=== PATIENT | male | born 1980 | race Caucasian/White ===

== ENCOUNTER 2019-12-28 12:23 | Emergency (ER) | payer OTHER, SELFPAY ==
[2019-12-28 12:35] VITALS: BP 167/96; PULSE 112; RESP 20; TEMP 38.6; O2SAT 100
--- NOTE | 2019-12-28 12:47 | ED.URI ---
HPI - URI/Sore Throat General Chief Complaint: Upper Respiratory Infection Stated Complaint: cough/fever Source: patient Mode of arrival: ambulatory Limitations: no limitations History of Present Illness HPI Narrative: 39 year old male presents to urgent care with complaints of cough, runny nose, nasal congestion, bites, chills and fevers for the past 2 to 3 days. Patient reports that his daughter fever last week. Patient denies recent travel. Patient is a smoker. Patient has been taking [id number] ibuprofen and Zyrtec with minimal relief. Patient denies nausea, vomiting, diarrhea, shortness breath or wheezing. MD elicited complaint: fever, cough, sore throat, rhinorrhea and nasal congestion Onset (ago): day(s) (2) Consistency: constant Able to tolerate fluids by mouth: Yes Exacerbating factors: nothing Related Data Home Medications Medication Instructions Recorded Confirmed atorvastatin 40 mg PO DAILY 12/28/19 12/28/19 carbidopa-levodopa 1 tablet PO USEASDIRECTD 12/28/19 12/28/19 cetirizine 10 mg PO DAILY 12/28/19 12/28/19 gabapentin 600 mg PO TID 12/28/19 12/28/19 meloxicam 15 mg PO DAILY 12/28/19 12/28/19 omeprazole 20 mg PO DAILY 12/28/19 12/28/19 Allergies Allergy/AdvReac Type Severity Reaction Status Date / Time No Known Allergies Allergy Verified 12/28/19 12:45 Review of Systems Review of Systems: All systems reviewed & are unremarkable except as noted in HPI and below Constitutional: Constitutional: Reports chills, Denies fatigue, Reports fever(s) and Denies weakness ENT: Denies dysphagia, Denies vertigo, Denies dizziness, Denies epistaxis, Reports nasal congestion and Reports sore throat Cardiovascular: Cardiovascular: Denies chest pain, Denies rapid heart rate, Denies radiating jaw, neck or arm pain and Denies slow heart rate Respiratory: Respiratory: Denies chest congestion, Reports cough, Denies dyspnea and Denies wheezing Gastrointestinal: Gastrointestinal: Denies abdominal pain, Denies constipation, Denies diarrhea, Denies nausea and Denies vomiting Integumentary/Breasts: Skin/Breast: Denies rash Neurologic: Denies dizziness, Denies syncope and Denies headache(s) [facility] Family History Family History Other Diabetes mellitus Family history of allergic disorder Family history of gallbladder disease Hypertension Social History Social History (Updated 12/28/19 @ 12:50 by Valeria Jay APN) Smoking status: Current every day smoker Alcohol intake: current Exam Const: General: healthy appearing, no acute distress and alert Orientation/consciousness: patient oriented x3 Limitations: no limitations HENMT: Head: normal to inspection Ears: external ears normal and TM's normal bilaterally General nose exam: Normal nares present Face and sinus: sinuses nontender Mouth: Yes moist mucous membranes Throat: posterior oropharynx normal and uvula midline Neck: Neck: normal visual inspection and no lymphadenopathy Resp: Effort & Inspection: normal respiratory effort, not labored and not tachypneic Auscultation: clear to auscultation bilaterally Cardio: Rate: regular rate Rhythm: regular rhythm Heart sounds: no murmurs Skin: General skin exam: normal color, no jaundice and no pallor Rashes: no rashes Neuro: General: patient oriented x3, moves all extremities and no focal motor deficits Psych: Appearance: grossly normal and well kempt Mental Status: mental status grossly normal Affect: normal affect Attitude: cooperative Thought content: Yes Normal thought content present Course Vital Signs Vital signs: Vital Signs Temperature 38.6 C H 12/28/19 12:35 Pulse Rate 112 H 12/28/19 12:35 Respiratory Rate 12/28/19 12:35 Blood Pressure 167/96 H 12/28/19 12:35 Pulse Oximetry 100 12/28/19 12:35 Temperature 38.6 C H 12/28/19 12:35 Pulse Rate 112 H 12/28/19 12:35 Respiratory Rate 12/28/19 12:3
[2019-12-28] MEDS: IBUPROFEN 600 MG TABLET PO (12:54)
[2019-12-28 13:10] VITALS: BP 156/92; PULSE 117; RESP 20; TEMP 37.7; O2SAT 100
== END 2019-12-28 13:10 | disposition home or self-care (01) ==
PROVIDERS: Emergency Provider Nurse Practitioner Family
DX: J10.1 Influenza due to other identified influenza virus with other respiratory manifestations (principal); F17.200 Nicotine dependence, unspecified, uncomplicated
CPT/HCPCS: 87804; 99213; A9270; G0463

== ENCOUNTER → 2020-07-25 08:36 | Outpatient (CLI) | payer OTHER, SELFPAY ==
--- NOTE | ~2020-07-25 | CT_ITS ---
EXAMINATION: CT abdomen pelvis wo con DATE: 07/25/2020 08:53 INDICATION: Hematuria and low back pain TECHNIQUE: Computed tomography (CT) of the abdomen and pelvis was performed without intravenous contr ast. The dose-length product (DLP) was 935.74 mGy-cm. Automated exposure control and iterative recons truction technique were employed. COMPARISON: 09/19/2017 FINDINGS: Minimal dependent atelectasis is present in the lung bases. The heart size is normal. Porti ons of the liver dome are excluded from the examination. The liver is diffusely low in attenuation wh en compared with the spleen, consistent with hepatic steatosis. The mildly enlarged spleen measures 1 5.9 cm. The gallbladder is surgically absent. The pancreas and adrenal glands are normal. There is a 5 mm nonobstructing stone of the right kidney lower pole. A 2 mm nonobstructing stone is present in t he lower pole of the right kidney. There is no hydronephrosis or hydroureter. No stones are present i n the ureters or the bladder. The appendix is normal. No pathologically enlarged abdominal or pelvic lymph nodes are identified. There is no free intraperitoneal gas or evidence of bowel obstruction. Th ere is mild lumbar spondylosis. IMPRESSION: 1. Bilateral nonobstructing nephrolithiasis. No hydronephrosis or hydroureter. 2. Diffuse hepatic steatosis. 3. Mild splenomegaly of unclear etiology. Reviewed, dictated and finalized at location A.
== END ==
PROVIDERS: PCP Internal Medicine; Visit Provider Internal Medicine
DX: R31.9 Hematuria, unspecified (principal); K76.0 Fatty (change of) liver, not elsewhere classified; N20.0 Calculus of kidney; R16.1 Splenomegaly, not elsewhere classified
CPT/HCPCS: 74176

== ENCOUNTER 2021-10-17 07:25 | Observation (INO) | payer OTHER, SELFPAY ==
[2021-10-17] VITALS (11 sets, daily range): BP systolic 130–162; BP diastolic 76–112; PULSE 71–92; RESP 16–20; TEMP 36.1–36.7; O2SAT 95–100; BMI 32.9; BMI 32.1
--- NOTE | ~2021-10-17 | CT_ITS ---
EXAMINATION: CT brain wo con DATE: 10/17/2021 08:02 INDICATION: Dizziness. TECHNIQUE: Computed tomography (CT) of the head was performed without intravenous contrast. The mA wa s adjusted according to patient size. Iterative reconstruction technique was employed. The dose-lengt h product was 681.00 mGy-cm. COMPARISON: Brain MRI 06/22/2014, 06/03/2011 FINDINGS: There is no intracranial hemorrhage, acute infarction, or abnormal intracranial mass lesion . The ventricles are normal in size. The paranasal sinuses are clear. The orbits are normal. The righ t ocular globe is chronically enlarged with increased anteroposterior dimension. IMPRESSION: 1. Normal brain. Reviewed, dictated and finalized at location B. GENERAL MANAGER IMPRESSION: 1. Normal brain.
--- NOTE | ~2021-10-17 | NM_ITS ---
EXAMINATION: NM stress w perf spect multi DATE: 10/18/2021 13:22 INDICATION: Chest pain. TECHNIQUE: Rest images were obtained following intravenous administration of 8.7 mCi Tc99m tetrofosmi n (PBS-Bio). The patient performed an exercise activity. At peak exercise, 28.8 mCi Tc99m tetrofosmin (Myoview) was administered intravenously, and stress images were obtained. Data was reconstructed in to short axis and horizontal and vertical long axis SPECT images. Gated SPECT images were also obtain ed. COMPARISON: CT abdomen and pelvis 09/19/2017 FINDINGS: There is no definite reversible or fixed perfusion abnormality to suggest ischemia or infar ction. There is no segmental wall motion abnormality. Left ventricular ejection fraction measures 6 4%. IMPRESSION: 1. No definite ischemia or infarct. 2. Normal left ventricular ejection fraction measuring 64%. Reviewed, dictated and finalized at location B. TY SALES ADVISOR
--- NOTE | ~2021-10-17 | XR_ITS ---
EXAMINATION: XR chest 2V DATE: 10/17/2021 09:49 INDICATION: Shortness of breath, hypertension and dizziness TECHNIQUE: PA and lateral views of the chest were obtained. COMPARISON: None FINDINGS: The lungs are clear with no focal airspace opacities, pulmonary edema, pleural effusion or pneumothor ax. The cardiomediastinal silhouette is normal. Visualized bones and soft tissues are unremarkable. IMPRESSION: 1. No acute cardiopulmonary disease. Reviewed, dictated and finalized at location A. OR RUBY DEVELOPER
--- NOTE | 2021-10-17 07:41 | ECG_ITS ---
Measurements Intervals [place] Rate: 87 P: 46 IA: 141 QRS: 17 QRSD: 129 T: 38 QT: 372 QTc: 450 Interpretive Statements SINUS RHYTHM ST ELEVATION IN DIFFUSE LEADS- PROBABLY EARLY REPOLARIZATION ABNORMALITY BASELINE ARTIFACT- I, II, III, AVR, AVL, AVF, V1-V6 BORDERLINE ECG Electronically Signed On 10-17-2021 9:57:22 SILK SCREENER by Heriberto Contreras D.O.
--- NOTE | 2021-10-17 07:44 | ED.GENADULT ---
HPI - General Adult General Chief complaint: Recheck/Abnormal Lab/Rx Stated complaint: ELEVATED BP,DIZZY Time Seen by Provider: 10/17/21 07:37 Source: patient Mode of arrival: ambulatory Limitations: no limitations History of Present Illness HPI narrative: Patient is a 4-year-old male complaining of dizziness, blurred vision and elevated blood pressure that woke him up this morning around 3 AM. Patient also states that he was having chest and left arm discomfort, tightness, mild also started this morning. Patient denies any speech or visual disturbance, focal weakness or numbness, or unsteady gait. Patient denies any chest pain, shortness of breath, abdominal pain, nausea, vomiting, diaphoresis, fever or chills. Patient denies any history of hypertension. Related Data Home Medications Medication Instructions Recorded Confirmed atorvastatin 40 mg PO DAILY 12/28/19 08/08/20 carbidopa-levodopa 1 tablet PO USEASDIRECTD 12/28/19 08/08/20 cetirizine 10 mg PO DAILY 12/28/19 08/08/20 gabapentin 600 mg PO TID 12/28/19 08/08/20 meloxicam 15 mg PO DAILY 12/28/19 08/08/20 Allergies Allergy/AdvReac Type Severity Reaction Status Date / Time No Known Allergies Allergy Verified 08/08/20 08:49 Review of Systems Review of Systems: All systems reviewed & are unremarkable except as noted in HPI and below Constitutional: Constitutional: Denies body ache(s), Denies chills, Denies excessive sweating, Denies fatigue, Denies fever(s), Denies headache(s), Denies lethargy, Denies malaise, Denies weakness and Denies weight loss Eyes: Eyes: Denies blurry vision, Denies change in vision and Denies loss of vision ENT: Denies dizziness, Denies ear discharge, Denies headache(s), Denies lip swelling, Denies epistaxis, Denies nasal congestion, Denies neck pain, Denies throat swelling and Denies tongue swelling Cardiovascular: Cardiovascular: Denies chest pain, Denies chest pain at rest, Denies chest pain with activity, Denies diaphoresis, Denies rapid heart rate, Denies edema, Denies irregular heart rhythm, Denies lightheadedness, Denies palpitations, Denies dyspnea and Denies dyspnea on exertion Respiratory: Respiratory: Denies chest congestion, Denies cough, Denies hemoptysis, Denies dyspnea and Denies dyspnea on exertion Gastrointestinal: Gastrointestinal: Denies abdominal pain, Denies melena, Denies hematochezia, Denies diarrhea, Denies nausea, Denies vomiting and Denies hematemesis Musculoskeletal: Musculoskeletal: Denies abnormal gait, Denies deformity, Denies joint swelling, Denies limited range of motion, Denies neck pain and Denies numbness Neurologic: Denies Abnormal speech present, Denies abnormal gait, Denies confusion, Denies headache(s), Denies focal weakness, Denies loss of vision, Denies numbness, Denies Other visual disturbances, Denies Sensory deficit (Neuro) and Denies weakness Psychiatric: Psychiatric: Denies confusion, Denies depression, Denies auditory hallucinations, Denies homicidal ideation and Denies suicidal ideation Endocrine: Endocrine: Denies cold intolerance, Denies excessive sweating, Denies fatigue, Denies heat intolerance and Denies palpitations Hematologic/Lymphatic: Hematologic/Lymphatic: Denies easy bleeding and Denies easy bruising Allergic/Immunologic: Allergic/Immunologic: Denies lip swelling, Denies throat swelling and Denies tongue swelling PMFSH Past Medical History Medical History Depression GERD (gastroesophageal reflux disease) High cholesterol Kidney stone Sphincter of Oddi dysfunction Surgical History Surgical History H/O eye surgery as a child H/O knee surgery 10 yrs ago History of back surgery 6 yrs ago History of inguinal hernia Hx laparoscopic cholecystectomy 8 yrs ago Hx of tonsillectomy as a child Family History Family History (Reviewed 10/17/21 @ 07:48 by Sin Meraz
[2021-10-17 08:07] LABS: Basophils Absolute Auto 0.1 K/mm3 (0.0-0.1); Basophils Percent Auto 1.3 % (0.2-1.2); Eosinophils Absolute Auto 0.1 K/mm3 (0-0.3); Eosinophils Percent Auto 1.1 % (0-4.4); Hematocrit 46.5 % (42.0-52.0); Hemoglobin 15.9 g/dL (14.0-18.0); Immature Granulocyte Absolute 0.02 K/mm3 (0.00-0.031); Immature Granulocyte Percent A 0.3 % (0-0.5); Lymphocytes Absolute Auto 1.97 K/mm3 (0.9-3.2); Lymphocytes Percent Auto 28.1 % (18.3-44.2); Mean Corpuscular HGB Conc 34.2 g/dl (32-36); Mean Corpuscular Hemoglobin 29.8 pg (26-34); Mean Corpuscular Volume 87.1 fl (80-100); Mean Platelet Volume 9.9 fl (7.4-10.4); Monocytes Absolute Auto 0.4 K/mm3 (0.1-0.6); Monocytes Percent Auto 5.6 % (2.6-8.5); Neutrophils Absolute Auto 4.5 K/mm3 (1.3-6.7); Neutrophils Percent Auto 63.6 % (45.5-73.1); Platelet Count Result 223 k/mm3 (150-375); Red Blood Count 5.34 M/mm3 (4.6-6.20)
[2021-10-17] MEDS: LABETALOL HCL INJ 100 MG/20 ML VIAL 20 MG IV PUSH (08:09)
--- NOTE | 2021-10-17 08:12 | PC.NURSE ---
patient receives labetalol IV per ERP instruction. BP 162/92 prior to administration.
[2021-10-17 09:12] LABS: Anion Gap 11 mmol/L (8-16); Blood Urea Nitrogen 12 mg/dL (9-20); Calcium 9.3 mg/dL (8.4-10.2); Carbon Dioxide 24 mmol/L (22-30); Chloride 107 mmol/L (98-107); Estimated CRCL calculation 116 ml/min; Estimated Glomerular Filt Rate > 60; Glucose 102 mg/dL (65-110); Potassium 4.1 mmol/L (3.4-5.0); Sodium 142 mmol/L (137-145)
[2021-10-17 09:24] LABS: Troponin I < 0.012 ng/mL (0.000-0.034)
[2021-10-17] MEDS: ASPIRIN 81 MG CHEWABLE TABLET 324 MG PO (11:53)
[2021-10-17 12:36] LABS: Troponin I < 0.012 ng/mL (0.000-0.034)
--- NOTE | 2021-10-17 14:15 | PM.IMHP ---
H&P: HPI History of Present Illness Date/Time: 10/17/21 14:15 <Gloria Bowers PA-C - Last Filed: 10/18/21 00:25> Chief Complaint: Elevated blood pressure. <Gloria Bowers PA-C - Last Filed: 10/18/21 00:25> Narrative: This is a 40-year-old male smoker with history of Parkinson's disease and hyperlipidemia who presented to the emergency department earlier today for evaluation of elevated blood pressure. Early this morning while driving to work he developed a diffuse aching headache and blurry vision with reports of halos around lights. As time went on he developed an aching discomfort in his chest and left arm and feelings of lightheadedness. He continue to work for a few hours but was not feeling better and when he went home and checked his blood pressure he noted that it was 173/116 and he came into the ER for further evaluation. He was given IV labetalol and aspirin with improvement in his blood pressure and headache. He has no significant symptoms at the time my evaluation. He has never had similar symptoms in the past and to his knowledge she has never had elevated blood pressure readings. He denies exertional chest pain, shortness of breath, pleuritic pain, syncope, near syncope, orthopnea, paroxysmal nocturnal dyspnea, and lower extremity edema. Of note he has not taken medications for over 1 year. <Gloria Bowers PA-C - Last Filed: 10/18/21 00:25> Review of Systems Review of Systems: Twelve systems were reviewed. Patient has not taken medication for approximately 1 year. He was diagnosed with Parkinson's at age 28 and was on Sinemet for some time for his upper extremity tremors. He has not taken that for over a year and seems to do pretty well though his tremors will become more evident with stress. Occasionally he ambulates with a cane bed typically walks unassisted. No cold or flu symptoms no sick contacts. Except as documented, all other systems were reviewed and are negative. <Gloria Bowers PA-C - Last Filed: 10/18/21 00:25> [facility] Past Medical History Medical History: Medical History (Updated 10/18/21 @ 00:20 by Gloria Bowers PA-C) Arthritis of both knees Depression Gastroesophageal reflux disease Hyperlipidemia Kidney stone Parkinson's disease Sphincter of Oddi dysfunction Tobacco abuse <Gloria Bowers PA-C - Last Filed: 10/18/21 00:25> Surgical History Surgical History: Surgical History History of arthroscopy of right knee History of back surgery History of inguinal hernia (09/27/13) Indirect right inguinal hernia repair. History of laparoscopic cholecystectomy (04/12/11) History of right knee surgery (11/02/09) Karina osteotomy. History of strabismus surgery As an . History of tonsillectomy (1985) <Gloria Bowers PA-C - Last Filed: 10/18/21 00:25> Family History Family History: Family History Grandparent Diabetes mellitus Cancer Cerebrovascular accident Other Family history of allergic disorder Family history of gallbladder disease Hypertension <Gloria Bowers PA-C - Last Filed: 10/18/21 00:25> Social History Social History: Social History Social History: Surrogate decision maker: Brit Brady, spouse. Code status: Full code. Smoking packs per day: 0.5 Smoking cigarettes per day: 10.0 Years smoked: 22 Smoking pack-years: 11.00 Smoking status: Current every day smoker Tobacco type: cigarettes Alcohol intake: never Substance use: unknown Additional living arrangements comments: The patient lives with his in [place]. 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 <Gloria Bowers PA-C - Last Filed: 10/18/21 00:25> Meds Home Medications and Allergies Home medications: Ho
--- NOTE | 2021-10-17 14:44 | ADMGEN ---
This patient, Niraj Brady, was admitted to IMU Room 203-01. Patient/family oriented to hospital policies and general routines including ID bracelet, bed and alarms, visiting hours, pain management, procedures, bathroom and other care routines, personal items, smoking policy, room service/diet, and visiting hours. Information on how to activate the Rapid Response Team has been discussed. Patient/Family are encouraged to report perceived risks to care and to ask questions if they do not understand what they are told or what they should do.
--- NOTE | 2021-10-17 15:37 | PM.CNCAR ---
Assessment and Plan Assessment and plan (1) Hypertensive urgency: Code(s): I16.0 - Hypertensive urgency Status: Acute Assessment and Plan: Blood pressure markedly elevated. Will start him on carvedilol 6.25 mg p.o. b.i.d. as well as losartan 25 mg p.o. daily. Low-salt diet. And dietary and lifestyle modifications for weight loss (2) Chest pain: Qualifiers: Chest pain type: unspecified Qualified Code(s): R07.9 - Chest pain, unspecified Code(s): R07.9 - Chest pain, unspecified Status: Acute Assessment and Plan: Probably related to high blood pressure. Symptoms are improving with better blood pressure control. Will order a 2D echocardiogram with Doppler. Will rule out for myocardial infarction with serial cardiac enzymes. P.r.n. nitroglycerin will be provided. Medications including carvedilol and losartan as above. Keep him NPO after midnight if he continues to have intermittent symptoms overnight, will perform a stress test or obviously if his enzymes trend positive, will consider coronary angiogram. (3) Tobacco abuse: Code(s): Z72.0 - Tobacco use Status: Acute Assessment and Plan: Tobacco abuse counseling performed. (4) Parkinson's disease: Code(s): G20 - Parkinson's disease Status: Acute Assessment and Plan: Formally on carbidopa levodopa but has not taken any medications for a year (5) Headache: Code(s): R51.9 - Headache, unspecified Status: Acute Assessment and Plan: Likely secondary to marked hypertension. Currently improved with better blood pressure control. (6) Hyperlipidemia: Code(s): E78.5 - Hyperlipidemia, unspecified Status: Acute Assessment and Plan: Will start atorvastatin 40 mg p.o. daily. History of Present Illness History of Present Illness Consult date/time: 10/17/21 15:37 Requesting physician: Sin Hauser MD Consult reason: chest pain and hypertension Reason For Visit: Hypertensive Urgency, Chest Pain Narrative: Date of service 10/17/2021 Reason for consultation: Hypertensive urgency, chest pain, headache Requesting provider: Dr. Hauser History: Patient is a 40-year-old male has hyperlipidemia Parkinson's disease. He has not been on any medications for about a year. He has been in reasonable health recently without any specific complaints until this morning. He woke up and felt okay but later developed some blurry vision and felt a little achy as well as having headache. He also had a little bit of achiness in his chest which was dull. He had some tightness in his left arm. His took his blood pressure was 173/116. He also had some blurry vision and was seeing halos. Because of all the symptoms and because of the high blood pressure, he came to hospital for further workup evaluation. In the ER his blood pressure was 160/110s, he was given labetalol as well as aspirin and his headache and chest symptoms have improved. His vision has also improved. He still has a slight headache and gas pains. CT scan of the head was performed which did not show any acute abnormalities. Otherwise recently he denies any shortness of breath, syncope, presyncope, paroxysmal nocturnal dyspnea, orthopnea, edema palpitations. Review of Systems Review of Systems: All systems reviewed & are unremarkable except as noted in HPI and below Constitutional: Constitutional: Reports body ache(s) and Denies weakness Eyes: Eyes: Denies blurry vision ENT: Reports Normal hearing present Cardiovascular: Cardiovascular: Reports chest pain Respiratory: Respiratory: Denies dyspnea Gastrointestinal: Gastrointestinal: Denies abdominal pain Genitourinary: Genitourinary: Denies dysuria Musculoskeletal: Musculoskeletal: Denies neck pain Integumentary/Breasts: Skin/Breast: Denies dry skin Neurologic: Reports headache(s) Psychiatric: Psychiatric: Denies anxiety Endocrine: End
[2021-10-17] MEDS: carvediloL 6.25 MG TABLET PO ×2 (18:51→20:52)
[2021-10-17 19:01] LABS: Troponin I < 0.012 ng/mL (0.000-0.034)
[2021-10-18] VITALS (10 sets, daily range): BP systolic 122–144; BP diastolic 74–89; PULSE 68–93; RESP 12–20; TEMP 36.7–37; O2SAT 99
--- NOTE | 2021-10-18 | ECHO_ITS ---
Patient Info Name: Niraj Brady Age: 40 years : 1980 Gender: Male Ht: 74 in Wt: 256 lbs BSA: 2.49 m2 HR: 83 bpm BP: 122 / 74 mmHg Heart Rhythm: Sinus Rhythm Technical Quality: Fair Exam Date: 10/18/2021 7:42 AM Exam Location: [facility] Patient Status: Inpatient Admit Date: 10/17/2021 Staff Ordering Physician: Chandana Eng MD Marketing Planner: Leighann Moreno RDCS Attending Provider: Jayson Finch MD Referring Physician: Albertina TOTH; Exam Type: CA echo doppler color flow Study Info Indications - chest pain, hypertension Complete two-dimensional, color flow and Doppler transthoracic echocardiogram is performed. Summary 1. Complete two-dimensional, color flow and Doppler transthoracic echocardiogram is performed. 2. Left ventricular systolic function is normal, estimated at 55-60%. 3. The left ventricular diastolic function is indeterminate. 4. There is mild aortic valve sclerosis. 5. There is trace tricuspid valve regurgitation. 6. No pulmonary hypertension, estimated pulmonary arterial systolic pressure is 35 mmHg. Left Ventricle Left ventricular chamber dimension is normal. Left ventricular systolic function is normal, estimated at 55-60%. There is no increased left ventricular wall thickness. Left ventricular septal wall motion is normal. The left ventricular diastolic function is indeterminate. Right Ventricle Right ventricular chamber dimension is normal. Right ventricular systolic function is normal. Left Atria Left atrial chamber dimension is normal. Right Atria Right atrial chamber dimension is normal. Atrial Septum Intact interatrial septum visualized by color flow imaging. Aortic Valve The aortic valve is trileaflet. There is mild aortic valve sclerosis. There is no aortic valve stenosis. There is no aortic valve regurgitation. Pulmonic Valve The pulmonic valve is normal. There is no pulmonic valve stenosis. There is no pulmonic regurgitation. Mitral Valve The mitral valve has normal leaflets. There is no mitral valve stenosis. There is no mitral valve regurgitation. Tricuspid Valve The tricuspid valve leaflets are normal. There is no significant tricuspid valve stenosis. There is trace tricuspid valve regurgitation. No pulmonary hypertension, estimated pulmonary arterial systolic pressure is 35 mmHg. Pericardium/Pleural The pericardium appears normal. There is no pericardial effusion. Aorta The aortic root size at the sinus of Valsalva is normal. The prox ascending aorta size is normal. Left Ventricular Outflow Tract Name Value Normal LVOT 2D LVOT Diameter 2.1 cm LVOT Doppler LVOT Peak Gradient 3 mmHg LVOT Mean Gradient 2 mmHg LVOT VTI 16 cm LVOT VTI/AV VTI Ratio 0.6 LVOT Stroke Volume 57 ml LVOT CO 4.5 l/min LVOT CI 1.8 l/min/m2 Pulmonic Valve
--- NOTE | 2021-10-18 | EST_ITS ---
Patient Info Name: Niraj Brady Age: 40 years : 1980 Gender: Male Ht: 74 in Wt: 249 lbs BSA: 2.46 m2 Exam Date: 10/18/2021 12:15 PM Exam Location: [facility] Stress Patient Status: Inpatient Admit Date: 10/17/2021 Staff Ordering Physician: Liza Vergara Attending Provider: Jayson Finch MD Exercise Technologist: Elizabeth Champagne RDCS Exercise Physician: Jimmy Dockery MD Exam Type: CA stress test treadmill w NM Study Info Indications R07.9 - Chest pain, unspecified A nuclear stress test was performed. Summary 1. Negative exercise EKG stress test for ischemia at 83% of the maximum predicted heart rate. 2. Follow-up on nuclear images. Protocol: Tang Stress ECG Details Stage: REST Duration (min): 0 min : 49 sec Speed (mph): 0.0 Grade (%): 0 HR (bpm): 82 SBP (mmHg): 147 DBP (mmHg): 90 METS: --- Stage: REST Duration (min): 6 min : 55 sec Speed (mph): 0.0 Grade (%): 0 HR (bpm): 89 SBP (mmHg): 147 DBP (mmHg): 90 METS: --- Stage: STAGE 1 Duration (min): 1 min : 0 sec Speed (mph): 1.7 Grade (%): 10 HR (bpm): 98 SBP (mmHg): 147 DBP (mmHg): 90 METS: --- Stage: STAGE 1 Duration (min): 2 min : 0 sec Speed (mph): 1.7 Grade (%): 10 HR (bpm): 100 SBP (mmHg): 147 DBP (mmHg): 90 METS: --- Stage: STAGE 1 Duration (min): 3 min : 0 sec Speed (mph): 1.7 Grade (%): 10 HR (bpm): 102 SBP (mmHg): 158 DBP (mmHg): 60 METS: --- Stage: STAGE 2 Duration (min): 1 min : 0 sec Speed (mph): 2.5 Grade (%): 12 HR (bpm): 108 SBP (mmHg): 158 DBP (mmHg): 60 METS: --- Stage: STAGE 2 Duration (min): 2 min : 0 sec Speed (mph): 2.5 Grade (%): 12 HR (bpm): 112 SBP (mmHg): 188 DBP (mmHg): 65 METS: --- Stage: STAGE 2 Duration (min): 3 min : 0 sec Speed (mph): 2.5 Grade (%): 12 HR (bpm): 114 SBP (mmHg): 188 DBP (mmHg): 65 METS: --- Stage: STAGE 3 Duration (min): 1 min : 0 sec Speed (mph): 3.4 Grade (%): 14 HR (bpm): 124 SBP (mmHg): 178 DBP (mmHg): 84 METS: --- Stage: STAGE 3 Duration (min): 2 min : 0 sec Speed (mph): 3.4 Grade (%): 14 HR (bpm): 125 SBP (mmHg): 178 DBP (mmHg): 84 METS: --- Stage: STAGE 3 Duration (min): 3 min : 0 sec Speed (mph): 3.4 Grade (%): 14 HR (bpm): 128 SBP (mmHg): 172 DBP (mmHg): 80 METS: --- Stage: STAGE 4 Duration (min): 1 min : 0 sec Speed (mph): 4.2 Grade (%): 16 HR (bpm): 139 SBP (mmHg): 172 DBP (mmHg): 80 METS: --- Stage: STAGE 4 Duration (min): 2 min : 0 sec Speed (mph): 4.2 Grade (%): 16 HR (bpm): 145 SBP (mmHg): 193 DBP (mmHg): 77 METS: --- Stage: STAGE 4 Duration (min): 2 min : 34 sec Speed (
[2021-10-18 05:22] LABS: Hematocrit 44.4 % (42.0-52.0); Hemoglobin 14.7 g/dL (14.0-18.0); Mean Corpuscular HGB Conc 33.1 g/dl (32-36); Mean Corpuscular Hemoglobin 28.7 pg (26-34); Mean Corpuscular Volume 86.5 fl (80-100); Mean Platelet Volume 10.1 fl (7.4-10.4); Platelet Count Result 218 k/mm3 (150-375); Red Blood Count 5.13 M/mm3 (4.6-6.20); Red Cell Distribution Width 13.9 % (11.5-14.5); White Blood Count 7.9 K/mm3 (4.5-10.0)
[2021-10-18 05:35] LABS: Magnesium 2.2 mg/dL (1.6-2.3)
--- NOTE | 2021-10-18 08:04 | PM.PNCARD ---
Progress Note: A&P Assessment and Plan (1) Hypertensive urgency: Code(s): I16.0 - Hypertensive urgency Status: Acute Assessment and Plan: Blood pressure markedly elevated on admission. Started on coreg 6.25mg p.o. b.i.d and losartan 25mg p.o. daily. Blood pressures have improved. Low salt diet. Dietary/lifestyle modifications for weight loss. (2) Chest pain: Qualifiers: Chest pain type: unspecified Qualified Code(s): R07.9 - Chest pain, unspecified Code(s): R07.9 - Chest pain, unspecified Status: Acute Assessment and Plan: Probably related to high blood pressure. Symptoms are improving with better blood pressure control. However, he did still have some chest tightness overnight. Will proceed with stress test today. Serial troponins were negative. Echo pending. (3) Tobacco abuse: Code(s): Z72.0 - Tobacco use Status: Acute Assessment and Plan: Tobacco abuse counseling performed. (4) Parkinson's disease: Code(s): G20 - Parkinson's disease Status: Acute Assessment and Plan: Formally on carbidopa levodopa but has not taken any medications for a year (5) Headache: Code(s): R51.9 - Headache, unspecified Status: Acute Assessment and Plan: Likely secondary to marked hypertension. Currently improved with better blood pressure control. (6) Hyperlipidemia: Code(s): E78.5 - Hyperlipidemia, unspecified Status: Acute Assessment and Plan: Started on a statin Subjective Date/time seen: 10/18/21 08:04 Review of Systems Review of Systems: All systems reviewed & are unremarkable except as noted in HPI and below Constitutional: Constitutional: Reports body ache(s), Denies fatigue, Reports headache(s) and Denies weakness Eyes: Eyes: Denies blurry vision ENT: Reports Normal hearing present, Reports headache(s) and Denies neck pain Cardiovascular: Cardiovascular: Reports chest pain and Denies dyspnea Respiratory: Respiratory: Denies dyspnea Gastrointestinal: Gastrointestinal: Denies abdominal pain Genitourinary: Genitourinary: Denies dysuria Musculoskeletal: Musculoskeletal: Denies neck pain Integumentary/Breasts: Skin/Breast: Denies dry skin Neurologic: Reports Normal hearing present, Reports headache(s) and Denies weakness Psychiatric: Psychiatric: Denies anxiety Endocrine: Endocrine: Denies fatigue Hematologic/Lymphatic: Hematologic/Lymphatic: Denies easy bleeding Allergic/Immunologic: Allergic/Immunologic: Denies GI upset with certain foods Exam Narrative: Patient awake, alert, and oriented Const: General: comfortable and no acute distress HENMT: General nose exam: Normal nares present Eyes: Sclera: sclerae normal Neck: Neck: supple and no JVD Resp: Auscultation: clear to auscultation bilaterally Cardio: Rate: regular rate Rhythm: regular rhythm Heart sounds: no murmurs GI: Inspection: non-distended Auscultation: normal bowel sounds Skin: General skin exam: normal color Neuro: Cranial nerves: Yes Normal hearing present Cognition (Neuro): normal cognition Speech: normal speech Extrem: General: normal to inspection and no edema Psych: Mental Status: mental status grossly normal Objective Data Vital Signs Vital Signs: Vital Signs - 24 hr 10/17/21 12:47 10/17/21 13:45 10/17/21 15:31 Temperature 36.7 C Pulse Rate 83 88 92 Respiratory Rate 18 18 Blood Pressure 139/92 H 149/92 H Pulse Oximetry 99 99 10/17/21 16:00 10/17/21 18:00 10/17/21 18:51 Temperature 36.6 C Pulse Rate 88 89 87 Respiratory Rate 16 Blood Pressure 147/76 H Pulse Oximetry 97 10/17/21 19:43 10/17/21 20:00 10/17/21 22:00 Temperature 36.6 C Pulse Rate 76 75 71 Respiratory Rate 20 Blood Pressure 130/81 Pulse Oximetry 95 10/17/21 23:43 10/18/21 00:00 10/18/21 02:00 Temperature 36.7 C Pulse Rate 88 68 72 Respiratory Rate 20 Blood
[2021-10-18] MEDS: ATORVASTATIN 40 MG TABLET PO (09:00)
[2021-10-18] MEDS: GABAPENTIN 300 MG CAPSULE 600 MG PO ×2 (09:00→15:13)
[2021-10-18] MEDS: ASPIRIN 81 MG ENTERIC TABLET PO (09:01)
[2021-10-18] MEDS: CARBIDOPA/LEVODOPA 25/250 MG TABLET 1 TABLET PO ×2 (09:03→15:13)
[2021-10-18] MEDS: LOSARTAN POTASSIUM 25 MG TABLET PO (09:20)
--- NOTE | 2021-10-18 14:01 | PM.DS ---
DS: Admitting Diagnosis Discharge Date 10/18/21 Admitting Diagnosis Chest pain, blurry vision and headache DS: Discharge Diagnosis Discharge Diagnosis (1) Chest pain: Qualifiers: Chest pain type: unspecified Qualified Code(s): R07.9 - Chest pain, unspecified Code(s): R07.9 - Chest pain, unspecified Status: Acute Assessment and Plan: CP felt related to high blood pressure as his symptoms improved with blood pressure control. EKG showing ST elevation diffusely felt to be repolarization. Troponin negative x3. Echo showing EF 55-60% o/w normal. Cardiology was consulted. Lexiscan stress test was negative. (2) Hypertensive urgency: Code(s): I16.0 - Hypertensive urgency Status: Acute Assessment and Plan: Blood pressures improved with IV labetalol given in the emergency department. He has been started on carvedilol 6.25 mg twice daily as well as losartan 25 mg daily. BP remained stable since. (3) Tobacco abuse: Code(s): Z72.0 - Tobacco use Status: Acute Assessment and Plan: Smoking cessation was strongly encouraged. (4) Hyperlipidemia: Code(s): E78.5 - Hyperlipidemia, unspecified Status: Acute Assessment and Plan: He is noncompliant with this medication as well. Encouraged compliance with all of his medications. We continued atorvastatin. (5) Parkinson's disease: Code(s): G20 - Parkinson's disease Status: Acute Assessment and Plan: Previously on carbidopa-levodopa though he has not taken medication for a year. Encouraged follow-up with primary care provider. DS: Summary Hospital Course Reason for hospitalization: 40yo male here for chest pain. Please see H&P for details. Hospital Course: Please see above for details of hospital course. Status at Discharge Cognitive/behavioral status at discharge: Stable Time Spent with Patient Time attestation: Total time spent providing and/or coordinating discharge services: 35 minutes Time spent: Greater than 30 minutes Specific discharge activities: discussion about leading a healthy lifestyle. Exam Narrative: AF 98.6 144/89 78 12 99% ra Gen - NARD Chest - CTA bilaterally, nml RR CV - RRR S1/S2 Abd - Soft, NT/ND, Positive BS Ext - No pedal edema Neuro - Alert and oriented. Nonfocal exam. Psych - Nml mood and affect Skin - Warm and dry DS: Data Data Completed and Pending Labs on day of discharge: Labs from last 24 hours 10/18/21 10/18/21 10/17/21 04:30 04:30 18:11 WBC 7.9 RBC 5.13 Hgb 14.7 Hct 44.4 MCV 86.5 MCH 28.7 MCHC 33.1 RDW 13.9 Plt Count 218 MPV 10.1 Magnesium 2.2 Troponin I < 0.012 Discharge Plan Discharge Attending physician on discharge: Jayson Finch Consulting providers: Chandana Eng Discharging Clinician: Jayosn Finch Anticipated Discharge Date/Time: 10/18/21 14:27 Patient Disposition: Home, Self-Care Activity: as tolerated Diet: heart healthy and low sodium Discharge Instructions: Please avoid large gathering, wear face coverings in public and practice social distance. Check blood pressure 1 to 2 times a day. Record and bring into your doctor for review. Call your doctor if your blood pressure is greater than 180/110. Contact your doctor or call 911 and come to the Emergency Room if you have recurrent chest pain or other worrisome symptoms. Avoid NSAIDs (ibuprofen, naproxen, Aleve). Tylenol is safe to take. Follow-up with your doctor in 1-2 weeks. Please call for appointment. Patient Instructions: Antibiotic Form, How to Stop Smoking (DC) Stand Alone Forms: General Discharge Information Follow-up/Referrals: Noni,Reza Anguiano MD [Primary Care Provider] - Call for Appointment Discharge Medications: New carvedilol [Coreg] 6.25 mg Tablet 6.25 mg PO Q12HR Qty: 60 RF: 1 losartan 25 mg
[2021-10-18] MEDS: carvediloL 6.25 MG TABLET PO (15:13)
== END 2021-10-18 16:49 | disposition home or self-care (01) ==
LOC: ANHED 12:05 → ANHIMU 13:04
PROVIDERS: Physician Assistant; Admitting Provider Internal Medicine; Emergency Provider Emergency Medicine; PCP Internal Medicine; Visit Provider Internal Medicine
DX: R07.9 Chest pain, unspecified (principal); I16.0 Hypertensive urgency; R51.9 Headache, unspecified; R42 Dizziness and giddiness; F17.210 Nicotine dependence, cigarettes, uncomplicated; G20 Parkinson's disease; E78.5 Hyperlipidemia, unspecified; K21.9 Gastro-esophageal reflux disease without esophagitis; F32.9 Major depressive disorder, single episode, unspecified
CPT/HCPCS: 36415; 70450; 71046; 78452; 80048; 83735; 84484; 85025; 85027; 93005; 93017; 93306; 96374; 99285; A9270; A9502; G0378

== ENCOUNTER 2024-09-14 08:51 | Outpatient (CLI) | payer BC, OTHER, SELFPAY ==
--- NOTE | ~2024-09-14 | XR_ITS ---
XR hip BI 2V w AP pelvis Ordering provider: Jaren Gaston MD History: . M25.559 - Pain in unspecified hip . Comparison: None. FINDINGS: BONES: No acute fracture or dislocation. HIP JOINT SPACES: Mild to moderate osteoarthritis changes bilaterally. SACROILIAC JOINT SPACES/LUMBAR SPINE: The sacroiliac joint spaces are narrowed bilaterally. Mild dege nerative changes of the visualized lower lumbar spine. PUBIC SYMPHYSIS: Normal. SOFT TISSUES: Normal. IMPRESSION: No acute osseous abnormality of the bilateral hips and pelvis. Bilateral hip osteoarthritic changes of moderate degree. Narrowing of the sacroiliac joints which may indicate sacroiliitis. Reviewed, dictated and finalized at location A. ICAL CARE UNIT MANAGER
--- NOTE | ~2024-09-14 | XR_ITS ---
3 VIEWS LUMBAR SPINE Ordering provider: Jaren Gaston MD History: . M96.1 - Postlaminectomy syndrome, not elsewhere classified . Comparison: None. FINDINGS: VERTEBRAL BODIES:Minimal spondylolisthesis at the level of L4-L5. No visible fracture or subluxation . Degenerative changes of the spine. DISK SPACES: Moderate narrowing of the disc L1-L2, L3-L4 and L4-L5. Facet joint disease at the level of L4-L5 and L5-S1. SOFT TISSUES: Normal. IMPRESSION: No acute osseous abnormality lumbar spine. Spondylolisthesis at the level of L4-L5. Multilevel degenerative disc disease. Reviewed, dictated and finalized at location A. AL SERVICES SPECIALIST
== END 2024-09-14 08:52 | disposition home or self-care (01) ==
PROVIDERS: PCP Nurse Practitioner Family; Visit Provider Anesthesiology Pain Medicine
DX: M96.1 Postlaminectomy syndrome, not elsewhere classified (principal); M43.16 Spondylolisthesis, lumbar region; M47.817 Spondylosis without myelopathy or radiculopathy, lumbosacral region; M51.369 Other intervertebral disc degeneration, lumbar region without mention of lumbar back pain or lower extremity pain; M16.0 Bilateral primary osteoarthritis of hip
CPT/HCPCS: 72114; 73521

== ENCOUNTER 2025-03-10 10:45 | Outpatient (CLI) | payer BC, OTHER, SELFPAY ==
--- NOTE | ~2025-03-10 | MR_ITS ---
MRI of the lumbar spine Clinical History: Modic changes Technique: Axial T2-weighted images, and sagittal T1-weighted, T2-weighted, and T2 fat-sat images wer e acquired. Findings: There is no fracture of the lumbar spine. There is minimal grade 1 anterolisthesis of L4 ov er L5. No bone marrow signal reality seen. No lytic changes are identified. At L1-L2, there is moderate degenerative disc narrowing. No spinal canal stenosis or neural foraminal narrowing. At L2-L3, there is minimal disc bulge and mild facet arthropathy. No central canal stenosis or neural foraminal narrowing. At L3-L4, there is mild degenerative disc narrowing. There is minimal disc bulge and mild facet arthr opathy. No central canal stenosis. There is mild bilateral neural foraminal narrowing. At L4-L5, there is disc bulge/uncovering with severe facet arthropathy. There is moderate central can al stenosis. Neural foramina are preserved. At L5-S1, there is mild disc bulge and moderate facet arthropathy. No central canal stenosis. There i s moderate left neural foraminal narrowing, and mild right neural foraminal narrowing. Paravertebral soft tissues are unremarkable. Impression: Bone marrow signals are unremarkable. No motor changes are evident. Mild degenerative change overall, as above. Reviewed, dictated and finalized at [facility]. Impression: Bone marrow signals are unremarkable. No motor changes are evident. Mild degenerative change overall, as above.
== END 2025-03-10 10:46 | disposition home or self-care (01) ==
LOC: MICIMG 10:46
PROVIDERS: PCP Nurse Practitioner Family; Visit Provider Anesthesiology Pain Medicine
DX: M47.816 Spondylosis without myelopathy or radiculopathy, lumbar region (principal)
CPT/HCPCS: 72148

== ENCOUNTER 2025-03-25 07:32 | Emergency (ER) | payer BC, OTHER, SELFPAY ==
--- NOTE | ~2025-03-25 | XR_ITS ---
EXAMINATION: XR chest 2V 03/25/2025 08:50 INDICATION: Shortness of breath PROCEDURE: 2 view chest COMPARISON: No prior studies for comparison. FINDINGS: The lungs are clear. The cardiomediastinal silhouette is within normal limits. There are no pleural effusions. There is no pneumothorax suspected. IMPRESSION: 1: NO ACUTE CARDIOPULMONARY DISEASE. Reviewed, dictated and finalized at location A.
--- OUTSIDE RECORDS SUMMARY | 2025-03-25 07:35 | XMS_ITS | Clinical Summary ---
Author Organization [facility] Address [address] [place] [address] Care Team Providers Care Tip Out Worker Name Role Phone Timmy Betancourt MD Primary Care Provider [phone] Source Comments [facility],non-owned Affiliates and Associated Physician Practices is amultiple site organization consisting of ambulatory clinics and hospital sitesin [place], [place], [place] and [place]. This disclosure is being madepursuant to the Care Everywhere program and may not contain all information available regarding this patient. Last updated 18.[facility] Allergies Active Allergy Reactions Criticality Noted Date Comments Morphine 12/01/2016 Vomiting Medications * Be aware that medications may not be up to date on this document. Alwaysverify current medications with the patient. carbidopa-levodo pa (SINEMET) 25-250 MG tablet Take 1 Tab by mouth 3 times daily. Active gabapentin PHN (GRALISE) 600 MG tablet Take 600 mg by mouth daily with dinner. 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 MAINTENANCE TECHNICIAN Respiratory Rate 16 12/01/2016 7:20 PM TIRE MAINTENANCE TECHNICIAN Oxygen Saturation 99% 12/01/2016 7:20 PM TIRE MAINTENANCE TECHNICIAN Inhaled Oxygen Concentration - - Weight 115.7 kg (255 lb) 12/01/2016 3:41 PM 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 MAINTENANCE TECHNICIAN Height 186.7 cm (6' 1.5) 12/01/2016 3:41 PM TIRE MAINTENANCE TECHNICIAN Body Mass Index 33.19 12/01/2016 3:41 PM TIRE MAINTENANCE TECHNICIAN Plan of Treatment Health Maintenance Due Date Last Done Comments LIPID TESTING 1980 HIV SCREENING 1995 HEPATITIS C SCREENING 11/15/1998 DTAP/TDAP/TD VACCINES (1 - Tdap) 1999 HEPATITIS B VACCINE (1 of 3 - 19+ 3-dose series) 1999 COVID-19 VACCINE ( - 2023-2 5 season) 2024 DEPRESSION SCREENING 10/20/2024 INFLUENZA VACCINE (Season Ended) 2025 ZOSTER VACCINE (1 of 2) 2030 HIB VACCINE Aged Out No longer eligi ble based on patient's age to complete this topic HPV VACCINE Aged Out No longer eligi ble based on patient's age to complete this topic MENINGOCOCCAL (Group B) VACC INE SHARED DECISION-MAKING Aged Out No longer eligibl e based on patient's age to complete this topic MENINGOCOCCAL GROUPS A/C/Y/W VACCINE Aged Out No longer eligible b ased on patient's age to complete this topic PNEUMOCOCCAL VACCINE Aged Out No long er eligible based on patient's age to complete this topic [facility] [place] [address] PAY[employer] [place] [place] [id number] [facility] Care Teams Tip Out Worker Relationship Specialty Start Date End Date Timmy Betancourt MD PCP - General Family Medicine 12/01/16
--- OUTSIDE RECORDS SUMMARY | 2025-03-25 07:35 | XMS_ITS | Patient Health Record ---
Author Organization [facility] Address [address] [place] [address] Care Team Providers Care Ground Service Equipment Mechanic Name Role Phone Reza Cheney MD Primary Care Provider Unavailab angely KASPER, PAElC, CELESTINO Unavailable [phone] Robbie Irvin MD Unavailable Reason For Referral No Information Medications Medication SIG (Take, Route, Frequency, Duration) Notes Start Date End Date Status Atorvastatin Calcium 40 MG 1 tablet Oral ly Once a day Active Sertraline HCl 100 MG 1 tablet Orally On ce a day Active Tylenol PRN Active Meloxicam 15 MG 1 tablet Orally Once a day Active Melatonin 10 MG as directed Orally Active Benadryl PRN Active Carbidopa-Levodopa 25-250 MG 1 tablet Orally 5 times a day Active Dicyclomine HCl 20 MG 1 tablet Orally up to 3-4 times a day before meals and at bedtime for 30 day(s) 08/11/2020 Active Gabapentin 600 MG 1 tablet Orally TID Active Social History Tobacco Use: Social History Observation Description Date Details (start date - stop date) Current Smoker NA - NA Tobacco Use/Smoking Question Answer Notes Are you a current smoker How often do you smoke cigarettes? every day How many cigarettes a day do you smoke? 6-10 Plan Of Treatment Pending Test Test Name Order Date Colonoscopy 08/28/2020 Lipase, Serum 08/11/2020 Celiac Disease Panel 08/11/2020 Comp. Metabolic Panel (14) 08/11/2020 CBC 08/11/2020 Esophagogastroduodenoscopy (EGD) 020 Insurance Providers Payer Name Payer Address Payer Phone Subscriber Number Group Number Insured Name Patient Relationship to Insured Coverage Start Date Coverage End Date [facility] [address] [place], [place] [id number] Niraj Brady Self - patient is the insured Medical (General) History Medical History History ICD Code Depression, GERD, hyperchole sterolemia, kidney stones, biliary dyskinesia, obesity, early Parkinson's disease Surgical History Surgery Date(Month/Year) Eye surgery, knee surgery, b ack surgery, inguinal hernia repair, lap cholecystectomy, tonsillectomy
[2025-03-25 07:38] VITALS: BP 196/125; PULSE 78; RESP 14; TEMP 36.4; O2SAT 98
--- NOTE | 2025-03-25 07:47 | ECG_ITS ---
Test Date: 2025-03-25 08:07:37 Measurements Intervals [place] Rate: 82 P: 26 AL: 183 QRS: -28 QRSD: 128 T: -2 QT: 372 QTc: 435 Interpretive Statements SINUS RHYTHM INCOMPLETE RIGHT BUNDLE BRANCH BLOCK DELAYED PRECORDIAL R/S TRANSITION INFERIOR INFARCT, AGE INDETERMINATE BASELINE ARTIFACT- I, II, III, AVR, AVL, AVF ABNORMAL ECG No previous ECG available for comparison Electronically Signed On 03-25-2025 08:36:38 CDT by Heriberto Contreras D.O.
[2025-03-25 08:05] LABS: Basophils Absolute Auto 0.1 K/mm3 (0.0-0.1); Basophils Percent Auto 1.2 % (0.2-1.2); Eosinophils Absolute Auto 0.1 K/mm3 (0-0.3); Eosinophils Percent Auto 1.6 % (0-4.4); Hemoglobin 15.6 g/dL (14.0-18.0); Immature Granulocyte Absolute 0.06 K/mm3 (0.00-0.031); Immature Granulocyte Percent A 0.7 % (0-0.5); Lymphocytes Percent Auto 31.4 % (18.3-44.2); Mean Corpuscular HGB Conc 33.2 g/dl (32-36); Mean Corpuscular Hemoglobin 28.5 pg (26-34); Mean Corpuscular Volume 85.9 fl (80-100); Mean Platelet Volume 9.1 fl (7.4-10.4); Monocytes Absolute Auto 0.5 K/mm3 (0.1-0.6); Monocytes Percent Auto 6.1 % (2.6-8.5); Neutrophils Absolute Auto 5.3 K/mm3 (1.3-6.7); Platelet Count Result 251 k/mm3 (150-375); Red Blood Count 5.47 M/mm3 (4.6-6.20); Red Cell Distribution Width 13.6 % (11.5-14.5); White Blood Count 8.9 K/mm3 (4.5-10.0)
[2025-03-25 08:07] VITALS: BP 186/135; PULSE 84; RESP 13; TEMP 36.6; O2SAT 99
[2025-03-25 08:15] LABS: Alanine Aminotransferase 46 U/L (6-50); Albumin Level 4.6 g/dL (3.5-5.1); Alkaline Phosphatase 76 U/L (38-126); Anion Gap 9 mmol/L (4-12); Aspartate Amino Transferase 42 U/L (17-59); Bilirubin,Total 0.7 mg/dL (0.2-1.3); Blood Urea Nitrogen 15 mg/dL (9-20); Calcium 9.5 mg/dL (8.4-10.2); Carbon Dioxide 24 mmol/L (22-30); Chloride 109 mmol/L (98-107); Estimated CRCL calculation 109 ml/min; Estimated Glomerular Filt Rate > 60; Glucose 103 mg/dL (65-110); Potassium 4.5 mmol/L (3.4-5.0); Sodium 142 mmol/L (137-145); Total Protein 7.6 g/dL (6.3-8.2)
--- NOTE | 2025-03-25 08:20 | ED.GENADULT ---
HPI - General Adult General Chief complaint: Recheck/Abnormal Lab/Rx Stated complaint: HTN Time Seen by Provider: 03/25/25 07:45 History of Present Illness HPI narrative: Patient is a 44-year-old male with history of hypertension who presents ER with elevated blood pressure. Systolic blood pressures been running in the 190s. No chest pain. Mild shortness of breath but reports that is related to a cold he has had for last 2 weeks. He has had sinus congestion mild throbbing headache. No change in vision or hearing. No extremity weakness. Has not been taking any decongestants, only Zyrtec. Takes his metoprolol for his blood pressure. Related Data Allergies Allergy/AdvReac Type Severity Reaction Status Date / Time morphine AdvReac Mild Nausea Verified 03/25/25 07:45 Review of Systems Review of Systems: All systems reviewed & are unremarkable except as noted in HPI and below Constitutional: Constitutional: Reports no additional constitutional complaints Cardiovascular: Cardiovascular: Reports no additional cardiovascular complaints Respiratory: Respiratory: Reports no additional respiratory complaints Gastrointestinal: Gastrointestinal: Reports no additional gastrointestinal complaints [facility] Past Medical History Medical History Hyperlipidemia Arthritis of both knees Parkinson's disease Gastroesophageal reflux disease Sphincter of Oddi dysfunction Kidney stone Depression Surgical History Surgical History History of back surgery History of strabismus surgery As an . History of arthroscopy of right knee History of right knee surgery (11/02/09) Karina osteotomy. History of laparoscopic cholecystectomy (04/12/11) History of tonsillectomy (1985) History of inguinal hernia (09/27/13) Indirect right inguinal hernia repair. Family History Family History Grandparent Diabetes mellitus Cancer Cerebrovascular accident Other Family history of allergic disorder Family history of gallbladder disease Hypertension Social History Social History Social History: Surrogate decision maker: Brit Mackrachel, spouse. Code status: Full code. 02/03/25 very confident with medical forms Smoking packs per day: 0.5 Smoking cigarettes per day: 10.0 Years smoked: 22 Smoking pack-years: 11.00 Smoking status: Current every day smoker Tobacco type: cigarettes Alcohol intake: never Substance use: unknown Substance use type: does not use Do You Feel Safe in your Home?: Yes Lack of Transportation: No Lack of Food: Never True Current Housing: I Have Housing Concerned About Future Housing: No Difficulty Paying Gas/Electric Bills: No Difficulty Paying for Meds: No Currently Unemployed: No Education: Trade/Vocational Certificate Difficulty w/ Childcare or Family Care: No Living arrangements: with family Additional living arrangements comments: The patient lives with his in [place]. 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 Gender identity (if verbalized by the patient): Male Exam Narrative: GENERAL: Well-appearing, well-nourished, and in no acute distress. HEAD: Normocephalic, atraumatic. ENT: Mucous membranes moist. CHEST: Clear to auscultation. No respiratory distress. HEART: Regular rate and rhythm. Normal peripheral pulses. ABDOMEN: Soft, nontender, nondistended. EXTREMITIES: Normal range of motion. No edema. SKIN: Warm, dry, no rash. NEURO: Alert and oriented x3. PSYCH: Normal mood and affect. Course Course Emergency Course: Patient resting comfortably. Blood pressure ranging between 155 and 196 systolic, diastolic his remained in the 100s. Discussed case with his PCP. Will start on hydrochlorothiazide 25 mg. He should follow up for further evaluation in clinic. Patient educated on treatment plan and verbalized understanding. Vital Signs Vital signs: Vital Signs Temperature 97.6 F 03/25/25 07:38 Pulse Rate 78 03/25/25 07:38 Respiratory Rate 14 03/25/25 07:38 Blood Pressure 196/125 H 03/25/25 07:38 Pulse Oximetry 98 03/25/25 07:38 Oxygen Delivery Room Air 03/25/25 07:38 Temperature 97.8 F 03/25/25 08:43 Pulse Rate 84 03/25/25 08:43 Respiratory Rate 16 03/25/25 08:43 Blood Pressure 155/110 H 03/25/25 08:43 Pulse Oximetry 98 03/25/25 08:43 Oxygen Delivery Room Air 03/25/25 07:38 Medical Decision Making Vital Signs Vital Signs: Vital Signs Temperature 97.6 F 03/25/25 07:38 Pulse Rate 78 03/25/25 07:38 Respiratory Rate 14 03/25/25 07:38 Blood Pressure 196/125 H 03/25/25 07:38 Pulse Oximetry 98 03/25/25 07:38 Oxygen Delivery Room Air 03/25/25 07:38 Temperature 97.8 F 03/25/25 08:43 Pulse Rate 84 03/25/25 08:43 Respiratory Rate 16 03/25/25 08:43 Blood Pressure 155/110 H 03/25/25 08:43 Pulse Oximetry 98 03/25/25 08:43 Oxygen Delivery Room Air 03/25/25 07:38 Lab Data 03/25/25 07:56 03/25/25 07:56 Labs: Lab Results 03/25/25 Range/Units 07:56 WBC 8.9 (4.5-10.0) K/mm3 RBC 5.47 (4.6-6.20) M/mm3 Hgb 15.6 (14.0-18.0) g/dL Hct 47.0 (42.0-52.0) % MCV 85.9 (80-100) fl MCH 28.5 (26-34) pg MCHC 33.2 (32-36) g/dl RDW 13.6 (11.5-14.5) % Plt Count 251 (150-375) k/mm3 MPV 9.1 (7.4-10.4) fl Immature Gran % (Auto) 0.7 H (0-0.5) % Neut % (Auto) 59.0 (45.5-73.1) % Lymph % (Auto) 31.4 (18.3-44.2) % Bacon % (Auto) 6.1 (2.6-8.5) % Eos % (Auto) 1.6 (0-4.4) % Baso % (Auto) 1.2 (0.2-1.2) % Lymph # (Auto) 2.80 (0.9-3.2) K/mm3 Bacon # (Auto) 0.5 (0.1-0.6) K/mm3 Eos # (Auto) 0.1 (0-0.3) K/mm3 Baso # (Auto) 0.1 (0.0-0.1) K/mm3 Abs Immat Gran (auto) 0.06 H (0.00-0.031) K/mm3 Absolute Neuts (auto) 5.3 (1.3-6.7) K/mm3 Absolute Nucleated RBC 0.000 (0.0-0.012) K/mm3 Nucleated RBC % 0.0 (0.0-0.2) % Sodium 142 (137-145) mmol/L Potassium 4.5 (3.4-5.0) mmol/L Chloride 109 H (98-107) mmol/L Carbon Dioxide 24 (22-30) mmol/L Anion Gap 9 (4-12) mmol/L BUN 15 (9-20) mg/dL Creatinine 1.06 (0.7-1.3) mg/dL Estim Creat Clear Calc 109 ml/min Estimated GFR > 60 (59 - ) Glucose 103 (65-110) mg/dL Calcium 9.5 (8.4-10.2) mg/dL Total Bilirubin 0.7 (0.2-1.3) mg/dL AST 42 (17-59) U/L ALT 46 (6-50) U/L Alkaline Phosphatase 76 (38-126) U/L Total Protein 7.6 (6.3-8.2) g/dL Albumin 4.6 (3.5-5.1) g/dL Imaging Data Radiologist's impression: ITS Impressions Chest X-Ray 03/25/25 08:51 IMPRESSION: 1: NO ACUTE CARDIOPULMONARY DISEASE. ECG Data EKG #1: ECG completion date: 03/25/25 ECG completion time: 08:07 EKG Interpretation: normal rate (82), sinus rhythm, non-specific ST changes, RBBB (incomplete) and normal QT Discharge Plan Discharge Clinical Impression: Hypertension Patient Disposition: Home Condition: Stable Instructions: Hypertension (ED) Additional Instructions: Please return to the emergency department if you develop severe and persistent chest pain, difficulty breathing, dizziness, leg swelling or if you are coughing up blood as these can be signs of a medical emergency. Please call your doctor for a follow up appointment to determine the need for further testing. Patient Language: Russian Prescriptions: New hydrochlorothiazide 25 mg tablet 25 mg PO DAILY Qty: 14 0RF No Action metoprolol succinate 50 mg tablet extended release 24 hr 50 mg PO DAILY Qty: 90 0RF omeprazole 20 mg capsule,delayed release(DR/EC) 20 mg PO DAILY Qty: 90 0RF rosuvastatin 10 mg tablet 10 mg PO DAILY Qty: 90 1RF Follow-up/Referrals: Jessica Bashir, HYPERBARIC NURSE-C [Primary Care Provider] - 1 Week
[2025-03-25 08:43] VITALS: BP 155/110; PULSE 84; RESP 16; TEMP 36.6; O2SAT 98
[2025-03-25 09:23] VITALS: BP 173/108; PULSE 86; RESP 16; O2SAT 97
[2025-03-25] MEDS: hydroCHLOROthiazide 25 MG TABLET PO (09:23)
== END 2025-03-25 09:44 | disposition home or self-care (01) ==
PROVIDERS: Emergency Provider Emergency Medicine; PCP Nurse Practitioner Family
DX: I10 Essential (primary) hypertension (principal); G20.A1 Parkinson's disease without dyskinesia, without mention of fluctuations; E78.5 Hyperlipidemia, unspecified; K21.9 Gastro-esophageal reflux disease without esophagitis; M17.0 Bilateral primary osteoarthritis of knee; F17.210 Nicotine dependence, cigarettes, uncomplicated; Z87.442 Personal history of urinary calculi; Z90.49 Acquired absence of other specified parts of digestive tract; Z79.899 Other long term (current) drug therapy; I45.10 Unspecified right bundle-branch block; R94.31 Abnormal electrocardiogram [ECG] [EKG]
CPT/HCPCS: 36415; 71046; 80053; 85025; 93005; 99284; A9270

== ENCOUNTER 2025-04-18 01:57 | Day surgery (SDC) | payer BC, OTHER, SELFPAY ==
[2025-04-12 12:45] VITALS: BMI 36.0
--- NOTE | 2025-04-12 13:03 | SUR.PREOP ---
Report to the Outpatient Waiting Room, entrance under the green pavilion located off [facility], at time 1100 on date 04/18/25. Planned Procedure Time: 1200.? Time changes happen often and if your time is changed the preop area will call you the afternoon before. - You and your visitor will be asked to self-screen and do not enter if you have any COVID symptoms. Please call surgeon if you need to reschedule. - A mask is optional within the hospital at this time. Patients may have clear liquids (water, carbonated beverages, clear teas, apple juice) until 3 hours prior to surgery with a maximum of 20 ounces. - No food from midnight until time of surgery and no smoking, or chewing tobacco (or any form of nicotine). No chewing gum, candy or mints. - Infants may have breast milk until 4 hours before surgery, infant formula 6 hours prior to surgery. - Children will be allowed to drink immediately following surgery.? If applicable, please bring a bottle or sippy cup to assist with drinking. Juice, water, soda, and popsicles are readily available.? For infants on formula, please bring formula the day of surgery.? Pacifiers are allowed. Take only the following medications with a SIP of water on the morning of surgery: take all medications as prescribed DO NOT STOP ANY OF YOUR OTHER PRESCRIPTION MEDICATIONS PRIOR TO SURGERY EXCEPT THE FOLLOWING Hold all vitamins and supplements for 3 days per anesthesiologist. Medications to discontinue per physician PT TO CALL DR CHAPA OFFICE TO MAKE SURE HE CAN TAKE 800MG IBUPROFEN BID THROUGH PROCEDURE DATE. Date to take last dose FOLLOW DR HULL INSTRUCTIONS FOR IBUPROFEN Please no make-up, nail central african, hairspray, perfume, deodorant, or body powder the day of surgery.? No jewelry (including any body piercings) or valuables the day of surgery, leave them at home.? Please take a shower or bath the night before, or the morning of, surgery with an antibacterial soap.? Wear comfortable, loose fitting clothing.? Children are encouraged to wear pajamas. - Jewelry must be removed prior to entering the operating room.? Rings and piercings that are not removed may be cut off. - The hospital will not accept responsibility for valuables.? - Please leave all valuables, including medications, at home the day of surgery. If you are going home after surgery, a licensed putaway driver must drive you home.? - NO public transportation without another adult if you receive anesthesia. - We recommend that an adult stay with you for 24 hours following discharge. - We also recommend that you do not drive, make important decision, drink alcoholic beverages, or take any drugs that were not prescribed by your health care provider for at least 24 hours after your discharge time. For Pediatric surgeries, we recommend two adults accompany the child home. Follow any additional instructions given to you from your surgeon. Telephone instructions given to GARTH OCAMPO and asked if any additional questions and then verbalized understanding. Patient advised to call surgeon office or pre surgery nurse liaison [phone] if any additional questions.
--- NOTE | ~2025-04-18 | XR_ITS ---
EXAMINATION: XR fluoroscopy no charge DATE: 04/18/2025 12:18 INDICATION: Lumbar steroid injection TECHNIQUE: 67 fluoroscopic images of the lumbar spine were obtained during procedure performed by Dr. Gaston. Radiologist was not present for the imaging or procedure. The amount of fluoroscopy time used during this procedure was 0.6 minutes. Total DAP was 6.927 Gycm^2. COMPARISON: None. FINDINGS: Images demonstrate advancement of spinal needles to the posterior superior aspect of the left L4-L5 a nd L5-S1 neural foramina. Subsequent images demonstrate a small amount of injected contrast extending to the soft tissues near the needle tips with no evident intravascular contrast. IMPRESSION: 1. Fluoroscopy utilized during reported transforaminal epidural steroid injections at the neural fora nathaniel on the left at L4-L5 and L5-S1. See procedure note for further detail. Reviewed, dictated and finalized at location B. IMPRESSION: 1. Fluoroscopy utilized during reported transforaminal epidural steroid injecti ons at the neural foramina on the left at L4-L5 and L5-S1. See procedure note f or further detail.
[2025-04-18 11:03] VITALS: BP 145/87; PULSE 100; RESP 18; TEMP 36.6; O2SAT 99; BMI 35.5
--- NOTE | 2025-04-18 11:16 | WPDHPUPDATE1 ---
History and Physical Update Update Date/Time: 04/18/25 11:16 History and Physical has been reviewed, including an updated exam of the patient. There are NO changes in the patient's condition. Risks, benefits, and alternatives have been discussed and questions answered. Patient agrees to proceed with procedure.
--- NOTE | 2025-04-18 11:17 | P.OP_ITS ---
Procedure Note - Detailed Date of Procedure 04/18/25 Pre-op Diagnosis lumbosacral radiculopathy, lumbar spinal stenosis Post-op Diagnosis Same Procedure Performed [Right] [Lumbar] Transforaminal Epidural Steroid Injection under Fluoroscopic Guidance and with Contrast Control at [L4-5, L5-S1]. Surgeon Jaren Gaston MD Anesthesia Local Description of Procedure INFORMED CONSENT: Risks, benefits and alternatives to the procedure were discussed in detail with the patient who expressed explicit understanding and consent to proceed. Patient was informed verbally and in written form regarding the risks associated with the procedure including the low risk of serious infection, bleeding/bruising, allergic reaction, nerve or organ injury, paralysis, procedural site pain or discomfort, worsening pain and/or mobility, failure to treat and/or disfigurement. The patient expressed explicit understan ding and consent to proceed. All materials required for the procedure were available prior to procedure start. Site and side was marked prior to procedure and confirmed in the presence of the patient. PROCEDURE IN DETAIL: The patient was brought to the procedural suite and placed in the prone position. Patient was made comfortable with use of pillows under the head/chest, hips and ankles. Skin overlying the injection site was prepared broadly with ChloraPrep applicator and draped in a sterile manner. Aseptic technique was employed throughout. The endplates of the vertebral body at the site of interest were aligned in the AP view. Ipsilateral oblique angulation was utilized to better visualize the neuroforamen of interest. Local anesthesia was established by infiltration with approximately 5 mL of 0.5% PF lidocaine via a 1-1/2 inch 27-gauge needle. A 22-gauge 5.0 inch Andrea (pencil point) spinal needle was advanced until the needle approached the 6 o'clock position on the pedicle just superior to the exiting nerve root. on the left at L4-5. Lateral view was utilized to confirm appropriate position of the needle tip within the superior and posterior portion of the respective foramen. In an AP view, 1 mL of Omnipaque 300 contrast medium was injected after negative aspiration for CSF, blood or other bodily fluid, showing appropriate neurogram without evidence of intravascular or intrathecal spread of contrast. Digital subtraction imaging was used with an additional 1ml of the same contrast medium to confirm absence of intravascular contrast spread. A 1mL solution containing 5 mg of dexamethasone was injected after negative repeat aspiration. Appropriate spread of the injectate was confirmed with washout of previously injected contrast. No par asthesias were elicited. Needle was removed completely intact without difficulty. The same exact procedure was repeated for all remaining levels on the ipsilateral side, left L5-S1 neuroforamen, modified as necessary to accommodate for the new target location with identical findings and results and no evidence of complication. Images were saved and documented in the patient chart. Patient's skin was cleaned and sterile bandage applied. The patient tolerated the procedure well. The patient was transported to the recovery area in stable condition where they were observed for an appropriate amount of time prior to discharge, without evidence of complication. The patient was instructed to avoid excessive activity for the next 48 hours, including climbing and frequent use of stairs. Showers only for 48 hours. They were instructed not to drive or operate heavy machinery for 24 hours. They are to monitor for severe headaches, fevers, chills, night sweats, erythema/swelling at the site or any other signs of infection, bleeding/bruising, bowel or bladder changes as well as new pain, weakness or numbness in the upper or lower extremity. Should they notice these changes, they are instructed to call our office immediately or report directly to the nearest Emergency Department if no answer or if after posted office hours. COMPLICATIONS: None COMMENTS: None CONTRAST WASTED: 26 mL Omnipaque 300. STEROID WASTED: 0 mg of dexamethasone. Complications No immediate complications Condition Stable Disposition Same day [facility] Billing Surgery - Charge Forward: Surgery Billing
[2025-04-18 12:00] VITALS: BP 166/92; PULSE 96; RESP 16; O2SAT 97
[2025-04-18] MEDS: LIDOCAINE 2% PF LOCAL INJ 5 ML VIAL 2 ML INFILTRATE (12:08)
[2025-04-18 12:10] VITALS: BP 158/102; PULSE 98; RESP 16; O2SAT 99
[2025-04-18] MEDS: LIDOCAINE 1% LOCAL INJ 10 ML VIAL 4 ML INFILTRATE (12:11)
[2025-04-18 12:16] VITALS: BP 161/98; PULSE 93; RESP 16; O2SAT 99
== END 2025-04-18 12:36 | disposition home or self-care (01) ==
PROVIDERS: PCP Nurse Practitioner Family; Visit Provider Anesthesiology Pain Medicine
PROC: (CPT 64483; principal; 2025-04-18 12:00)
DX: M47.27 Other spondylosis with radiculopathy, lumbosacral region (principal); M48.061 Spinal stenosis, lumbar region without neurogenic claudication
CPT/HCPCS: 64483; 64484; 99199; J2003; Q9965

== ENCOUNTER 2025-04-20 14:47 | Outpatient (CLI) | payer BC, OTHER, SELFPAY ==
--- NOTE | ~2025-04-20 | US_ITS ---
Limited Abdominal Sonogram: Real-time sonographic imaging of the right upper quadrant was performed. Clinical History: Right upper quadrant pain Findings: The liver appears echogenic, with no evidence of mass lesion or bile duct dilatation. Main portal vein demonstrates normal direction of flow. The gallbladder is absent, compatible prior lowell cystectomy. The common bile duct measures 4 mm. The visualized pancreas, aorta, and IVC are unremark able. Impression: Diffuse fatty infiltration of liver. Reviewed, dictated and finalized at location M. Impression: Diffuse fatty infiltration of liver.
== END 2025-04-20 14:48 | disposition home or self-care (01) ==
LOC: MICIMG 14:47
PROVIDERS: PCP Nurse Practitioner Family; Visit Provider Nurse Practitioner Family
DX: R10.11 Right upper quadrant pain (principal); K76.0 Fatty (change of) liver, not elsewhere classified
CPT/HCPCS: 76705

== ENCOUNTER 2025-06-13 01:36 | Day surgery (SDC) | payer BC, OTHER, SELFPAY ==
[2025-06-01 13:42] VITALS: BMI 35.4
--- NOTE | 2025-06-01 13:50 | PC.NURSE ---
Report to the Outpatient Waiting Room, entrance under the green pavilion located off [facility], at time ___11:00AM____ on date ___[id number]____. Planned Procedure Time: __12:00PM___.? Time changes happen often and if your time is changed the preop area will call you the afternoon before. - You and your visitor will be asked to self-screen and do not enter if you have any COVID symptoms. Please call surgeon if you need to reschedule. - A mask is optional within the hospital at this time. Patients may have LIGHT BREAKFAST TWO HOURS PRIOR (NPO @10:00AM) Take only the following medications with a SIP of water on the morning of surgery: ____TAKE MEDS SCHEDULED DO NOT STOP ANY OF YOUR OTHER PRESCRIPTION MEDICATIONS PRIOR TO SURGERY EXCEPT THE FOLLOWING Hold all vitamins and supplements for 3 days per anesthesiologist. Medications to discontinue per physician PATIENT STATES EDUARD'S OFFICE INSTRUCTED HIM TO STOP IBUPROFEN X7 DAYS PRIOR Date to take last dose Please no make-up, nail japanese, hairspray, perfume, deodorant, or body powder the day of surgery.? No jewelry (including any body piercings) or valuables the day of surgery, leave them at home.? Please take a shower or bath the night before, or the morning of, surgery with an antibacterial soap.? Wear comfortable, loose fitting clothing.? Children are encouraged to wear pajamas. - Jewelry must be removed prior to entering the operating room.? Rings and piercings that are not removed may be cut off. - The hospital will not accept responsibility for valuables.? - Please leave all valuables, including medications, at home the day of surgery. If you are going home after surgery, a licensed pharmacy delivery driver must drive you home.? - NO public transportation without another adult if you receive anesthesia. - We recommend that an adult stay with you for 24 hours following discharge. - We also recommend that you do not drive, make important decision, drink alcoholic beverages, or take any drugs that were not prescribed by your health care provider for at least 24 hours after your discharge time. For Pediatric surgeries, we recommend two adults accompany the child home. Follow any additional instructions given to you from your surgeon. Telephone instructions given to ___PATIENT and asked if any additional questions and then verbalized understanding. Patient advised to call surgeon office or pre surgery nurse liaison [phone] if any additional questions.
--- NOTE | ~2025-06-13 | XR_ITS ---
XR fluoroscopy no charge Indication: Spinal block left L3, L4 and L5 TECHNIQUE: Fluoroscopy used during Spinal block left L3, L4 and L5 performed by [Jaren Gaston MD] on 06/13/2025. 35 seconds of fluoroscopy with 6 fluoroscopic images captured. FINDINGS: Correlate with procedure note. IMPRESSION: Fluoroscopy used during Spinal block left L3, L4 and L5. Reviewed, dictated and finalized at location O.
--- OUTSIDE RECORDS SUMMARY | 2025-06-13 01:38 | XMS_ITS | Clinical Summary ---
Author Organization [facility] Address [address] [place] [address] Care Team Providers Care Certified Shorthand Reporter Name Role Phone Timmy Betancourt MD Primary Care Provider [phone] Source Comments [facility],non-owned Affiliates and Associated Physician Practices is amultiple site organization consisting of ambulatory clinics and hospital sitesin [place], [place], [place] and [place]. This disclosure is being madepursuant to the Care Everywhere program and may not contain all information available regarding this patient. Last updated 18.[facility] Allergies Active Allergy Reactions Criticality Noted Date [...] on file Legal Sex Male 6:05 AM MECHANICAL DETAILER Gender Identity Not on file Sexual Orientation Not on file Last Filed Vital Signs Vital Sign Reading Time Taken Comments Blood Pressure 146/89 12/01/2016 3:41 PM MECHANICAL DETAILER Pulse 72 12/01/2016 7:20 PM MECHANICAL DETAILER Temperature 36.6 C (97.9 F) 12/01/2016 3:41 PM MECHANICAL DETAILER Respiratory Rate 16 12/01/2016 7:20 PM MECHANICAL DETAILER Oxygen Saturation 99% 12/01/2016 7:20 PM MECHANICAL DETAILER Inhaled Oxygen Concentration - - Weight 115.7 kg (255 lb) 12/01/2016 3:41 PM MECHANICAL DETAILER Height 186.7 cm (6' 1.5) 12/01/2016 3:41 PM MECHANICAL DETAILER Body Mass Index 33.19 12/01/2016 3:41 PM MECHANICAL DETAILER Plan of Treatment Health Maintenance Due Date Last Done Comments LIPID TESTING 1980 HIV SCREENING 1995 HEPATITIS C SCREENING 11/15/1998 DTAP/TDAP/TD VACCINES (1 - Tdap) 1999 HEPATITIS B VACCINE (1 of 3 - 19+ 3-dose series) 1999 HPV VACCINE (1 - 3-dose SCDM series) 2007 COVID-19 VACCINE (1 - 2023-2 5 season) 2024 DEPRESSION SCREENING 10/20/2024 INFLUENZA VACCINE (#1) 2025 ZOSTER VACCINE (1 of 2) 2030 [...] age to complete this topic Insurance [facility] [place], [place] [address] [address] [place] Care Teams Certified Shorthand Reporter Relationship Specialty Start Date End Date Timmy Betancourt MD PCP - General Family Medicine 12/01/16
--- OUTSIDE RECORDS SUMMARY | 2025-06-13 01:38 | XMS_ITS | Clinical Summary ---
Author Organization [facility] Address [address] [place] [id number] Care Team Providers Care Sped Teacher Name Role Phone Kings Olvera MD Primary Care Provider [phone] Social History Tobacco Use Types Packs/Day Years Used Date Smoking Tobacco: Never Assessed Sex and Gender Information Value Date Recorded Sex Assigned at Not on file Legal Sex Male 8:32 PM CDT Gender Identity Not on file Sexual Orientation Not on file Plan of Treatment Health Maintenance Due Date Last Done Comments Annual Physical 1983 Hepatitis C 1998 DTaP, Tdap and Td Vaccines ( 1 - Tdap) 1999 Hepatitis B Vaccines (1 of 3 - 19+ 3-dose series) 1999 HPV Vaccines (1 - 3-dose SCD M series) 2007 COVID-19 Vaccine (2023-2 5 season) 2024 Meningococcal B Vaccine Aged Out No l onger eligible based on patient's age to complete this topic Meningococcal Vaccine Aged Out No daphne cathie eligible based on patient's age to complete this topic Pneumococcal Vaccine: Pediat rics (0 to 5 Years) and At-Risk Patients (6 to 49 Years) Aged Out No longer eligible b ased on patient's age to complete this topic RSV Immunizations Under 20 Months Aged Out No longer eligible based on patient's age to complete this topic Care Teams Sped Teacher Relationship Specialty Start Date End Date Kings Olvera MD [address] [place] [id number] PCP - General 03/10/15
--- OUTSIDE RECORDS SUMMARY | 2025-06-13 01:38 | XMS_ITS | Patient Health Record ---
Author Organization [facility] Address [address] [place] [address] Care Team Providers Care Saddle Maker Name Role Phone Reza Cheney MD Primary Care Provider Unavailab angely KASPER, PAElC, CELESTINO Unavailable [phone] Robbie Irvin MD Unavailable Reason For Referral [...] times a day before meals and at bedtime; Duration: 30 day(s) 08/11/2020 Active Gabapentin 600 MG [...] Insured Coverage Start Date Coverage End Date [facility] [address] [place], [place] [id number] Niraj Brady Self - patient is the insured Medical (General) History Medical History History ICD Code Depression, GERD, hyperchole sterolemia, kidney stones, biliary dyskinesia, obesity, early Parkinson's disease Surgical History Surgery Date(Month/Year) Eye surgery, knee surgery, b ack surgery, inguinal hernia repair, lap cholecystectomy, tonsillectomy
[2025-06-13 11:00] VITALS: BP 133/82; PULSE 85; RESP 20; TEMP 36.1; O2SAT 100
--- NOTE | 2025-06-13 11:39 | PM.HPGS ---
History of Present Illness History of Present Illness Consent: Risks, benefits, and alternatives have been discussed and questions answered. Patient agrees to proceed with procedure. Chief complaint: lumbosacral spondylosis Narrative: Niraj Brady is a 44 year old male with chronic, recalcitrant and disabling left lumbosacral back pain secondary to degenerative spondylosis with failure to respond to aggressive conservative measures including PT, oral and topical analgesics, opioid and nonopioid analgesics, rest, time and activity/behavioral modification over the past 1-2 years who presents for diagnostic/prognostic medial branch blocks of the left L3, L4, L5 medial branches/dorsal ramus(#1) addressing the left L4-5, L5-S1 facet joints under fluoroscopic guidance and with contrast control. Review of Systems Review of Systems: All systems reviewed & are unremarkable except as noted in HPI and below PMFSH Past Medical History Medical History Hyperlipidemia Arthritis of both knees Parkinson's disease Gastroesophageal reflux disease Sphincter of Oddi dysfunction Kidney stone Depression Surgical History Surgical History History of back surgery History of strabismus surgery As an infant. History of arthroscopy of right knee History of right knee surgery (11/02/09) Karina osteotomy. History of laparoscopic cholecystectomy (04/12/11) History of tonsillectomy (1985) History of inguinal hernia (09/27/13) Indirect right inguinal hernia repair. Family History Family History Grandparent Diabetes mellitus Cancer Cerebrovascular accident Other Family history of allergic disorder Family history of gallbladder disease Hypertension Social History Social History Social History: Surrogate decision maker: Brit Brady, spouse. Code status: Full code. 05/04/25 very confident with medical forms Smoking packs per day: 0.5 Smoking cigarettes per day: 10.0 Years smoked: 15 Smoking pack-years: 7.50 Smoking status: Former smoker Tobacco type: cigarettes Smoking end date: 05/03/25 Alcohol intake: current Drinks per week: 2 Alcohol use details: socially Substance use: never Substance use type: does not use Do You Feel Safe in your Home?: Yes Lack of Transportation: No Lack of Food: Never True Current Housing: I Have Housing Concerned About Future Housing: No Difficulty Paying Gas/Electric Bills: No Difficulty Paying for Meds: No Currently Unemployed: No Education: Trade/Vocational Certificate Difficulty w/ Childcare or Family Care: No Living arrangements: with family Additional living arrangements comments: and children Occupation/Education: occupation 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 Gender identity (if verbalized by the patient): Male Spiritual care concerns: No Meds Home Medications and Allergies Home Medications ?Medication ?Instructions ?Recorded ?Confirmed ?Type bupropion HCl 150 mg 24 hr tablet, 150 mg PO QAM #90 tabs 03/30/25 06/13/25 Rx extended release (Wellbutrin XL) hydrochlorothiazide 25 mg tablet 25 mg PO DAILY #90 tabs 03/30/25 06/13/25 Rx rosuvastatin 20 mg tablet 20 mg PO DAILY #90 tabs 04/06/25 06/13/25 Rx ibuprofen 200 mg tablet (IBU-200) 800 mg PO BID 04/12/25 06/01/25 History metoprolol succinate 50 mg 50 mg PO DAILY #90 tabs 05/06/25 06/13/25 Rx tablet,extended release 24 hr dicyclomine 20 mg tablet 20 mg PO TID PRN abdominal pain 05/11/25 06/01/25 Rx #60 tabs cetirizine 10 mg tablet (24Hour 10 mg PO DAILY PRN allergy symptoms 06/01/25 06/01/25 History Allergy) omeprazole 20 mg capsule,delayed 20 mg PO DAILY 06/01/25 06/13/25 History release Allergies Allergy/AdvReac Type Severity Reaction Status Date / Time morphine AdvReac Mild Nausea Verified 06/13/25 11:07 Vital Signs Vital Signs - 24 hr 06/13/25 11:00 Temperature 96.9 F L Pulse Rate 85 Respiratory Rate 20 Blood Pressure 133/82 Pulse Oximetry 100 Oxygen Delivery Room Air Exam Narrative: The patient's physical exam is essentially unchanged from prior examination on 05/10/2025. Specifically, patient demonstrates normal lung capacity, tidal volume and respiratory rate without wheezes, crackles, rales or rubs. Heart rate and rhythm are regular without murmurs, gallops or rubs. No JVD. Pulses 2+ globally without increasing peripheral edema. AAOx3 with no evidence of confusion, intoxication or altered mental state, NC/AT without acute distress or altered consciousness. Speech, cognition, mood, insight and judgment at baseline and within normal limits. Assessment and Plan Assessment and plan (1) Lumbosacral spondylosis: Code(s): M47.817 - Spondylosis without myelopathy or radiculopathy, lumbosacral region Status: Acute Assessment and Plan: proceed as planned with diagnostic/prognostic medial branch blocks of the left L3, L4, L5 medial branches/dorsal ramus(#1) addressing the left L4-5, L5-S1 facet joints under fluoroscopic guidance and with contrast control. (2) Low back pain: Qualifiers: Chronicity: acute Back pain laterality: bilateral Sciatica presence: with sciatica Sciatica laterality: bilateral sciatica Qualified Code(s): M54.42 - Lumbago with sciatica, left side; M54.41 - Lumbago with sciatica, right side Code(s): M54.50 - Low back pain, unspecified Status: Acute (3) Chronic pain: Code(s): G89.29 - Other chronic pain Status: Acute
--- NOTE | 2025-06-13 11:42 | P.OP_ITS ---
Procedure Note - Detailed Date of Procedure 06/13/25 Pre-op Diagnosis lumbosacral spondylosis Post-op Diagnosis Same Procedure Performed Diagnostic left Lumbar Medial Branch/Dorsal Ramus Blocks at L3, L4, L5 Treating the Ipsilateral L4-5, L5-S1 Facet Joints Under Fluoroscopic Guidance and with Contrast Control. (2 levels blocked). Surgeon Jaren Gaston MD Dry Wall Applicator None. Anesthesia Local Description of Procedure INFORMED CONSENT: Risks, benefits and alternatives to the procedure were discussed in detail with the patient who expressed explicit understanding and consent to proceed. Patient was informed verbally and in written form regarding the risks associated with the procedure including the low risk of serious infection, bleeding/bruising, allergic reaction, nerve or organ injury, paralysis, procedural site pain or discomfort, worsening pain and/or mobility, failure to treat and/or disfigurement. The patient expressed explicit understanding and consent to proceed. All materials required for the procedure were available prior to procedure start. Site and side were marked prior to procedure and confirmed in the presence of the patient. PROCEDURE IN DETAIL: The patient was brought to the procedural suite and placed in the prone position. Patient was made comfortable with use of pillows under the head/chest, hips and ankles. Skin overlying the injection site on the affected side(s) was prepared broadly with ChloraPrep applicator and draped in a sterile manner. Aseptic technique was used throughout. The endplates of the vertebral bodies at the site(s) of interest were aligned in the AP view. Ipsilateral oblique angulation was utilized to optimize visualization of the intersection between the superior articulating process and transverse process at each target site. Local anesthesia was established by infiltration with approximately 5 mL of 1% lidocaine via a 1-1/2 inch 27-gauge needle. A 25-gauge 3.5 inch Quincke spinal needle was advanced until the needle tip contacted periosteum at the target site, left L3. Lateral view was utilized to confirm the appropriate placement of the needle tip just anterior to the facet line and superior to the pedicle. In the Lateral view, 0.25 mL of Omnipaque 300 contrast medium was injected after negative aspiration for CSF, blood or other bodily fluid, showing appropriate extra-articular spread of contrast without evidence of intravascular, foraminal or intrathecal placement. A 0.5 mL solution of 0.5% PF bupivacaine was injected after negative repeat aspiration. Appropriate spread of the injectate was confirmed with washout of previously injected contrast. No parasthesias were elicited. Needle was removed completely intact without difficulty. The same exact procedure was repeated for all remaining levels on the contralateral side, left L4, L5 medial branches/dorsal ramus, modified as necessary to accommodate for the new target location with identical findings and results and no evidence of complication. Images were saved and documented in the patient chart. Patient's skin was cleaned and sterile bandage applied. The patient tolerated the procedure well. The patient was transported to the recovery area in stable condition where they were observed for an appropriate amount of time prior to discharge, without evidence of complication. Patient was instructed on the appropriate completion of a pain diary over the next 12-24 hours. The patient was instructed to avoid excessive activity for the next 48 hours, including climbing and frequent use of stairs. Showers only for 48 hours. They were instructed not to drive or operate heavy machinery for 24 hours. They are to monitor for severe headaches, fevers, chills, night sweats, erythema/swelling at the site or any other signs of infection, bleeding/bruising, bowel or bladder changes as well as new pain, weakness or numbness in the upper or lower extremity. Should they notice these changes, they are instructed to call our office immediately or report directly to the nearest Emergency Department if no answer or if after posted office hours. COMPLICATIONS: None COMMENTS: None CONTRAST WASTED: 29.25mL Omnipaque 300. Complications No immediate complications Condition Stable Disposition Same day [facility] Billing Surgery - Charge Forward: Surgery Billing
--- NOTE | 2025-06-13 11:42 | WPDHPUPDATE1 ---
History and Physical Update Update Date/Time: 06/13/25 11:42 History and Physical has been reviewed, including an updated exam of the patient. There are NO changes in the patient's condition. Risks, benefits, and alternatives have been discussed and questions answered. Patient agrees to proceed with procedure.
[2025-06-13 12:00] VITALS: BP 129/84; PULSE 84; RESP 20; O2SAT 99
[2025-06-13 12:17] VITALS: BP 162/91; PULSE 85; RESP 16; O2SAT 100
[2025-06-13 12:20] VITALS: BP 167/94; PULSE 78; O2SAT 99
[2025-06-13 12:35] VITALS: BP 149/93; PULSE 78
== END 2025-06-13 12:40 | disposition home or self-care (01) ==
PROVIDERS: PCP Nurse Practitioner Family; Visit Provider Anesthesiology Pain Medicine
PROC: (CPT 64493; principal; 2025-06-13 12:00)
DX: M47.817 Spondylosis without myelopathy or radiculopathy, lumbosacral region (principal); M54.42 Lumbago with sciatica, left side; M54.41 Lumbago with sciatica, right side; G89.29 Other chronic pain; E78.5 Hyperlipidemia, unspecified; K21.9 Gastro-esophageal reflux disease without esophagitis; M17.0 Bilateral primary osteoarthritis of knee; G20.A1 Parkinson's disease without dyskinesia, without mention of fluctuations; K83.4 Spasm of sphincter of Oddi; F32.A Depression, unspecified; Z79.1 Long term (current) use of non-steroidal anti-inflammatories (NSAID); Z98.890 Other specified postprocedural states; Z98.1 Arthrodesis status; Z90.49 Acquired absence of other specified parts of digestive tract; Z87.442 Personal history of urinary calculi; Z87.891 Personal history of nicotine dependence; Z80.9 Family history of malignant neoplasm, unspecified
CPT/HCPCS: 64493; 64494; 99199; Q9965

== ENCOUNTER 2025-07-11 02:08 | Day surgery (SDC) | payer BC, OTHER, SELFPAY ==
--- NOTE | 2025-06-29 14:00 | PC.NURSE ---
Report to the Outpatient Waiting Room, entrance under the green pavilion located off [facility], at time _1145_ on date _[id number]_. Planned Procedure Time: _1245_.? Time changes happen often and if your time is changed the preop area will call you the afternoon before. - You and your visitor will be asked to self-screen and do not enter if you have any COVID symptoms. Please call surgeon if you need to reschedule. - A mask is optional within the hospital at this time. Ok for light breakfast then nothing to eat or drink 2 hours before surgery 1045. No smoking, or chewing tobacco (or any form of nicotine). No chewing gum, candy or mints. Take only the following medications with a SIP of water on the morning of surgery: __All meds OK except Iburpofen___ DO NOT STOP ANY OF YOUR OTHER PRESCRIPTION MEDICATIONS PRIOR TO SURGERY EXCEPT THE FOLLOWING Hold all vitamins and supplements for 3 days per anesthesiologist. Medications to discontinue per physician __Patient says he was told to hold Ibuprofen for 7 days by 's office. Date to take last dose Please no make-up, nail mongolian, hairspray, perfume, deodorant, or body powder the day of surgery.? No jewelry (including any body piercings) or valuables the day of surgery, leave them at home.? Please take a shower or bath the night before, or the morning of, surgery with an antibacterial soap.? Wear comfortable, loose fitting clothing.? - Jewelry must be removed prior to entering the operating room.? Rings and piercings that are not removed may be cut off. - The hospital will not accept responsibility for valuables.? - Please leave all valuables, including medications, at home the day of surgery. If you are going home after surgery, a licensed service parts driver must drive you home.? - NO public transportation without another adult if you receive anesthesia. - We recommend that an adult stay with you for 24 hours following discharge. - We also recommend that you do not drive, make important decision, drink alcoholic beverages, or take any drugs that were not prescribed by your health care provider for at least 24 hours after your discharge time. Follow any additional instructions given to you from your surgeon. Telephone instructions given to ___Niraj__and asked if any additional questions and then verbalized understanding. Patient advised to call surgeon office or pre surgery nurse liaison [phone] if any additional questions.
[2025-06-29 14:06] VITALS: BMI 34.9
--- NOTE | ~2025-07-11 | XR_ITS ---
EXAMINATION: XR fluoroscopy no charge DATE: 07/11/2025 12:50 INDICATION: Left lumbar nerve blocks TECHNIQUE: 4 fluoroscopic images of the lumbar spine were obtained during procedure performed by Dr. Gaston. Radiologist was not present for the imaging or procedure. The amount of fluoroscopy time used during this procedure was 0.8 minutes. Total DAP was 7.656 Gycm^2. COMPARISON: 09/14/2024 FINDINGS: Images demonstrate thin spinal needles with distal tips and small amount of injected contrast positioned along the junction of the left superior articular and transverse processes at L4, L5 and S1. IMPRESSION: 1. Fluoroscopy utilized during pain management procedure the left side of the lower lumbar spine. See procedure note for further detail. Reviewed, dictated and finalized at location A. IMPRESSION: 1. Fluoroscopy utilized during pain management procedure the left side of the l ower lumbar spine. See procedure note for further detail.
--- OUTSIDE RECORDS SUMMARY | 2025-07-11 02:11 | XMS_ITS | Patient Health Record ---
Author Organization [facility] Address [address] [place] [address] Care Team Providers Care Aircraft Mechanic Name Role Phone Reza Cheney MD Primary Care Provider Unavailab angely KASPER, PAElC, CELESTINO Unavailable [phone] Robbie Irvin MD Unavailable Reason For Referral [...] Insured Coverage Start Date Coverage End Date [facility] [address] [place], [place] [id number] Niraj Brady Self - patient is the insured Medical (General) History Medical History History ICD Code Depression, GERD, hyperchole sterolemia, kidney stones, biliary dyskinesia, obesity, early Parkinson's disease Surgical History Surgery Date(Month/Year) Eye surgery, knee surgery, b ack surgery, inguinal hernia repair, lap cholecystectomy, tonsillectomy
--- OUTSIDE RECORDS SUMMARY | 2025-07-11 02:11 | XMS_ITS | Clinical Summary ---
Author Organization [facility] Address [address] [place] [address] Care Team Providers Care Supervisor Sawmill Name Role Phone Timmy Betancourt MD Primary Care Provider [phone] Source Comments [facility],non-owned Affiliates and Associated Physician Practices is amultiple site organization consisting of ambulatory clinics and hospital sitesin [place], [place], [place] and [place]. This disclosure is being madepursuant to the Care Everywhere program and may not contain all information available regarding this patient. Last updated 18.[facility] Allergies Active Allergy Reactions Criticality Noted Date [...] on file Legal Sex Male 6:05 AM CLINICAL TRIALS DATA COORDINATOR Gender Identity Not on file Sexual Orientation Not on file Last Filed Vital Signs Vital Sign Reading Time Taken Comments Blood Pressure 146/89 12/01/2016 3:41 PM CLINICAL TRIALS DATA COORDINATOR Pulse 72 12/01/2016 7:20 PM CLINICAL TRIALS DATA COORDINATOR Temperature 36.6 C (97.9 F) 12/01/2016 3:41 PM CLINICAL TRIALS DATA COORDINATOR Respiratory Rate 16 12/01/2016 7:20 PM CLINICAL TRIALS DATA COORDINATOR Oxygen Saturation 99% 12/01/2016 7:20 PM CLINICAL TRIALS DATA COORDINATOR Inhaled Oxygen Concentration - - Weight 115.7 kg (255 lb) 12/01/2016 3:41 PM CLINICAL TRIALS DATA COORDINATOR Height 186.7 cm (6' 1.5) 12/01/2016 3:41 PM CLINICAL TRIALS DATA COORDINATOR Body Mass Index 33.19 12/01/2016 3:41 PM CLINICAL TRIALS DATA COORDINATOR Plan of Treatment Health Maintenance Due Date Last Done Comments LIPID TESTING 1980 HIV SCREENING 1995 HEPATITIS C SCREENING 11/15/1998 DTAP/TDAP/TD VACCINES (1 - Tdap) 1999 HEPATITIS B VACCINE (1 of 3 - 19+ 3-dose series) 1999 HPV VACCINE (1 - 3-dose SCDM series) 2007 DEPRESSION SCREENING 10/20/2024 COVID-19 VACCINE (1 - 2023-2 5 season) 2025 INFLUENZA VACCINE (#1) 2025 ZOSTER VACCINE (1 [...] age to complete this topic [facility] [employer] [facility] [place], [place] [address] [employer] GENER[employer] [place] Care Teams Supervisor Sawmill Relationship Specialty Start Date End Date Timmy Betancourt MD PCP - General Family Medicine 12/01/16
--- OUTSIDE RECORDS SUMMARY | 2025-07-11 02:11 | XMS_ITS | Clinical Summary ---
Author Organization [facility] Address [address] [place] [address] Care Team Providers Care Director Of Marketing Communications Name Role Phone Kings Olvera MD Primary Care Provider [phone] Social History Tobacco Use Types Packs/Day Years [...] 3-dose SCD M series) 2007 COVID-19 Vaccine ( - 2023-2 5 season) 2025 Meningococcal B Vaccine Aged Out No l [...] age to complete this topic Care Teams Director Of Marketing Communications Relationship Specialty Start Date End Date Kings Olvera MD [address] [place] [id number] PCP - General 03/10/15
--- NOTE | 2025-07-11 11:38 | WPDHPUPDATE1 ---
History and Physical Update Update Date/Time: 07/11/25 11:38 History and Physical has been reviewed, including an updated exam of the patient. There are NO changes in the patient's condition. Risks, benefits, and alternatives have been discussed and questions answered. Patient agrees to proceed with procedure.
--- NOTE | 2025-07-11 11:40 | W.PM.PROC2 ---
Procedure Note - Detailed Date of Procedure 07/11/25 Pre-op Diagnosis Lumbosacral spondylosis, chronic low back pain Post-op Diagnosis Same Procedure Performed Diagnostic left Lumbar Medial Branch/Dorsal Ramus Blocks at L3, L4, L5 Treating the left L4-5, L5-S1 Facet Joints Under Fluoroscopic Guidance and with Contrast Control. (2 levels blocked). Surgeon Jaren Gaston MD Motorcycle Mechanic Apprentice None. Anesthesia Local Description of Procedure INFORMED CONSENT: Risks, benefits and alternatives to the procedure were discussed in detail with the patient who expressed explicit understanding and consent to proceed. Patient was informed verbally and in written form regarding the risks associated with the procedure including the low risk of serious infection, bleeding/bruising, allergic reaction, nerve or organ injury, paralysis, procedural site pain or discomfort, worsening pain and/or mobility, failure to treat and/or disfigurement. The patient expressed explicit understanding and consent to proceed. All materials required for the procedure were available prior to procedure start. Site and side were marked prior to procedure and confirmed in the presence of the patient. PROCEDURE IN DETAIL: The patient was brought to the procedural suite and placed in the prone position. Patient was made comfortable with use of pillows under the head/chest, hips and ankles. Skin overlying the injection site on the affected side(s) was prepared broadly with ChloraPrep applicator and draped in a sterile manner. Aseptic technique was used throughout. The endplates of the vertebral bodies at the site(s) of interest were aligned in the AP view. Ipsilateral oblique angulation was utilized to optimize visualization of the intersection between the superior articulating process and transverse process at each target site. Local anesthesia was established by infiltration with approximately 5 mL of 1% lidocaine via a 1-1/2 inch 27-gauge needle. A 25-gauge 5.0 inch Quincke spinal needle was advanced until the needle tip contacted periosteum at the target site, left L3. Lateral view was utilized to confirm the appropriate placement of the needle tip just anterior to the facet line and superior to the pedicle. In the Lateral view, 0.25 mL of Omnipaque 300 contrast medium was injected after negative aspiration for CSF, blood or other bodily fluid, showing appropriate extra-articular spread of contrast without evidence of intravascular, foraminal or intrathecal placement. A 0.5 mL solution of 2.0% PF lidocaine was injected after negative repeat aspiration. Appropriate spread of the injectate was confirmed with washout of previously injected contrast. No parasthesias were elicited. Needle was removed completely intact without difficulty. The same exact procedure was repeated for all remaining levels on the ipsilateral side, left L4, L5 medial branches/dorsal ramus, modified as necessary to accommodate for the new target location with identical findings and results and no evidence of complication. Images were saved and documented in the patient chart. Patient's skin was cleaned and sterile bandage applied. The patient tolerated the procedure well. The patient was transported to the recovery area in stable condition where they were observed for an appropriate amount of time prior to discharge, without evidence of complication. Patient was instructed on the appropriate completion of a pain diary over the next 12-24 hours. The patient was instructed to avoid excessive activity for the next 48 hours, including climbing and frequent use of stairs. Showers only for 48 hours. They were instructed not to drive or operate heavy machinery for 24 hours. They are to monitor for severe headaches, fevers, chills, night sweats, erythema/swelling at the site or any other signs of infection, bleeding/bruising, bowel or bladder changes as well as new pain, weakness or numbness in the upper or lower extremity. Should they notice these changes, they are instructed to call our office immediately or report directly to the nearest Emergency Department if no answer or if after posted office hours. COMPLICATIONS: None COMMENTS: None CONTRAST WASTED: 28.5mL Omnipaque 300. Complications No immediate complications Condition Stable Disposition Same day [facility] Billing Surgery - Charge Forward: Surgery Billing
[2025-07-11 12:00] VITALS: BP 139/92; PULSE 91; RESP 16; TEMP 36.3; O2SAT 98
[2025-07-11] MEDS: LIDOCAINE 2% PF LOCAL INJ 5 ML VIAL INFILTRATE (12:32)
[2025-07-11 12:33] VITALS: BP 143/92; PULSE 85; RESP 16; O2SAT 98
[2025-07-11 12:43] VITALS: BP 178/105; PULSE 90; RESP 16; O2SAT 99
[2025-07-11 12:45] VITALS: BP 151/92; PULSE 88; RESP 18; O2SAT 96
== END 2025-07-11 12:55 | disposition home or self-care (01) ==
PROVIDERS: PCP Nurse Practitioner Family; Visit Provider Anesthesiology Pain Medicine
PROC: (CPT 64493; principal; 2025-07-11 12:45)
DX: M48.061 Spinal stenosis, lumbar region without neurogenic claudication (principal); M43.16 Spondylolisthesis, lumbar region; M47.817 Spondylosis without myelopathy or radiculopathy, lumbosacral region; E78.5 Hyperlipidemia, unspecified; M17.0 Bilateral primary osteoarthritis of knee; G20.A1 Parkinson's disease without dyskinesia, without mention of fluctuations; K21.9 Gastro-esophageal reflux disease without esophagitis; F32.A Depression, unspecified; Z79.1 Long term (current) use of non-steroidal anti-inflammatories (NSAID); Z98.890 Other specified postprocedural states; Z98.1 Arthrodesis status; Z90.49 Acquired absence of other specified parts of digestive tract; Z87.442 Personal history of urinary calculi; Z87.891 Personal history of nicotine dependence; Z80.9 Family history of malignant neoplasm, unspecified
CPT/HCPCS: 64493; 64494; 99199; J2003; Q9965

== ENCOUNTER 2025-07-20 09:11 | Outpatient (CLI) | payer BC, OTHER, SELFPAY ==
--- OUTSIDE RECORDS SUMMARY | 2025-07-20 09:38 | XMS_ITS | Clinical Summary ---
Author Organization [facility] [employer] Address [address] [address] Care Team Providers Care Compressor Assembler Name Role Phone Timmy Betancourt MD Primary Care Provider [phone] Source Comments [facility] [employer],non-owned Affiliates and Associated Physician Practices is amultiple site organization consisting of ambulatory clinics and hospital sitesin [place], [place] and [place]. This disclosure is being madepursuant to the Care Everywhere program and may not contain all information available regarding this patient. Last updated 18.[facility] [employer] Allergies Active Allergy Reactions Criticality Noted Date [...] on file Legal Sex Male 6:05 AM FACILITY ATTENDANT Gender Identity Not on file Sexual Orientation Not on file Last Filed Vital Signs Vital Sign Reading Time Taken Comments Blood Pressure 146/89 12/01/2016 3:41 PM FACILITY ATTENDANT Pulse 72 12/01/2016 7:20 PM FACILITY ATTENDANT Temperature 36.6 C (97.9 F) 12/01/2016 3:41 PM FACILITY ATTENDANT Respiratory Rate 16 12/01/2016 7:20 PM FACILITY ATTENDANT Oxygen Saturation 99% 12/01/2016 7:20 PM FACILITY ATTENDANT Inhaled Oxygen Concentration - - Weight 115.7 kg (255 lb) 12/01/2016 3:41 PM FACILITY ATTENDANT Height 186.7 cm (6' 1.5) 12/01/2016 3:41 PM FACILITY ATTENDANT Body Mass Index 33.19 12/01/2016 3:41 PM FACILITY ATTENDANT Plan of Treatment Health Maintenance Due Date [...] age to complete this topic Insurance [facility] [employer] [facility] [place] [address] GENERIC [employer] Agency [employer] Care Teams Compressor Assembler Relationship Specialty Start Date End Date Timmy Betancourt MD PCP - General Family Medicine 12/01/16
--- OUTSIDE RECORDS SUMMARY | 2025-07-20 09:38 | XMS_ITS | Patient Health Record ---
Author Organization [facility] Address [address] [place] [address] Care Team Providers Care Dietary Director Name Role Phone Reza Cheney MD Primary Care Provider Unavailab angely KASPER, PAElC, CELESTINO Unavailable Robbie Irvin MD Unavailable Reason For Referral [...] Insured Coverage Start Date Coverage End Date [facility] [address] [place], [place] [id number] Niraj Brady Self - patient is the insured Medical (General) History Medical History History ICD Code Depression, GERD, hyperchole sterolemia, kidney stones, biliary dyskinesia, obesity, early Parkinson's disease Surgical History Surgery Date(Month/Year) Eye surgery, knee surgery, b ack surgery, inguinal hernia repair, lap cholecystectomy, tonsillectomy
[2025-07-20 10:23] LABS: Anion Gap 11 mmol/L (4-12); Blood Urea Nitrogen 16 mg/dL (9-20); Calcium 9.1 mg/dL (8.4-10.2); Carbon Dioxide 25 mmol/L (22-30); Chloride 105 mmol/L (98-107); Estimated Glomerular Filt Rate > 60; Glucose 81 mg/dL (65-110); Potassium 4.2 mmol/L (3.4-5.0); Sodium 141 mmol/L (137-145)
== END 2025-07-20 09:12 | disposition home or self-care (01) ==
LOC: ANHSURGERY 09:12
PROVIDERS: Anesthesiology; PCP Nurse Practitioner Family; Visit Provider Anesthesiology Pain Medicine
DX: Z79.899 Other long term (current) drug therapy (principal); Z01.818 Encounter for other preprocedural examination
CPT/HCPCS: 36415; 80048

== ENCOUNTER 2025-07-26 01:15 | Day surgery (SDC) | payer BC, OTHER, SELFPAY ==
[2025-07-18 10:35] VITALS: BMI 35.6
--- NOTE | 2025-07-18 10:44 | PC.NURSE ---
[facility] has started construction of its new state of the art ER which will open Spring 2026. With this, we anticipate parking may be a challenge for some our surgical patients and families. Parking spaces are limited but are available for all Surgical, obstetrics, and ER patients sharing this lot. If you arrive and find you are having a hard time finding a parking space, please note that we understand the challenges, please drive around the hospital and park near Hospital Entrance 1. When you enter this entrance, you can ask a volunteer to direct or take you back to the surgical waiting area to check in. We appreciate everyone?s understanding of these expected challenges while we build for your future. Report to the Outpatient Waiting Room, entrance under the green pavilion located off [address], at time _1130_ on date _[phone]_. Planned Procedure Time: _130pm_.? Time changes happen often and if your time is changed the preop area will call you the afternoon before. - You and your visitor will be asked to self-screen and do not enter if you have any COVID symptoms. Please call surgeon if you need to reschedule. - A mask is optional within the hospital at this time. No food or drink.from midnight until time of surgery and no smoking, or chewing tobacco (or any form of nicotine). No chewing gum, candy or mints. Take only the following medications with a SIP of water on the morning of surgery: ___Bupropion and Metoprolol DO NOT STOP ANY OF YOUR OTHER PRESCRIPTION MEDICATIONS PRIOR TO SURGERY EXCEPT THE FOLLOWING Hold all vitamins and supplements for 3 days per anesthesiologist. Medications to discontinue per physician ___Patient stopped Ibuprofen [id number] Date to take last dose Please no make-up, nail canadian, hairspray, perfume, deodorant, or body powder the day of surgery.? No jewelry (including any body piercings) or valuables the day of surgery, leave them at home.? Please take a shower or bath the night before, or the morning of, surgery with an antibacterial soap.? Wear comfortable, loose fitting clothing.? - Jewelry must be removed prior to entering the operating room.? Rings and piercings that are not removed may be cut off. - The hospital will not accept responsibility for valuables.? - Please leave all valuables, including medications, at home the day of surgery. If you are going home after surgery, a licensed taxi driver must drive you home.? - NO public transportation without another adult if you receive anesthesia. - We recommend that an adult stay with you for 24 hours following discharge. - We also recommend that you do not drive, make important decision, drink alcoholic beverages, or take any drugs that were not prescribed by your health care provider for at least 24 hours after your discharge time. Follow any additional instructions given to you from your surgeon. Telephone instructions given to __Niraj__and asked if any additional questions and then verbalized understanding. Patient advised to call surgeon office or pre surgery nurse liaison [phone] if any additional questions.
--- NOTE | ~2025-07-26 | XR_ITS ---
EXAMINATION: XR fluoroscopy no charge DATE: 07/26/2025 13:28 INDICATION: Lumbar thermal radiofrequency ablation TECHNIQUE: 13 fluoroscopic images of the lumbar spine were obtained during procedure performed by Dr. Gaston. Radiologist was not present for the imaging or procedure. The amount of fluoroscopy time used during this procedure was 0.8 minutes. Total DAP was 7.706 Gycm^2. COMPARISON: None. FINDINGS: Images demonstrate needles advanced to the junction of the transverse and superior articular processes at L4, L5 and S1 on both the left and right lung the expected course of the bilateral L3, L4 and L5 medial branches. IMPRESSION: 1. Fluoroscopy utilized during pain management procedure the lower lumbar spine. See procedure note for further detail. Reviewed, dictated and finalized at location A. IMPRESSION: 1. Fluoroscopy utilized during pain management procedure the lower lumbar spine . See procedure note for further detail.
--- NOTE | 2025-07-26 11:00 | WPDHPUPDATE1 ---
History and Physical Update Update Date/Time: 07/26/25 11:00 History and Physical has been reviewed, including an updated exam of the patient. There are NO changes in the patient's condition. Risks, benefits, and alternatives have been discussed and questions answered. Patient agrees to proceed with procedure.
--- NOTE | 2025-07-26 11:01 | P.OP_ITS ---
Procedure Note - Detailed Date of Procedure 07/26/25 Pre-op Diagnosis lumbosacral spondylosis, chronic low back pain Post-op Diagnosis Same Procedure Performed Thermal Radiofrequency Ablation of the Left Lumbar Medial Branches/Dorsal Ramus at the L3, L4, L5 Levels Treating the Ipsilateral L4-5, L5-S1 Facet Joints Under Fluoroscopic Guidance (2 Levels Treated). Surgeon Jaren Gaston MD Medical Receptionist Assistant None. Anesthesia Local (w/ MAC) Description of Procedure INFORMED CONSENT: Risks, benefits and alternatives to the procedure were discussed in detail with the patient who expressed explicit understanding and consent to proceed. Patient was informed verbally and in written form regarding the risks associated with the procedure including the low risk of serious infection, bleeding/bruising, allergic reaction, nerve or organ injury, paralysis, procedural site pain or discomfort, worsening pain and/or mobility, failure to treat and/or disfigurement. The patient expressed explicit understanding and consent to proceed. All materials required for the procedure were available prior to procedure start. Site and side were marked prior to procedure and confirmed in the presence of the patient. PROCEDURE IN DETAIL: The patient was brought to the procedural suite and placed in the prone position. Patient was made comfortable with use of pillows under the head/chest, hips and ankles. ASA standard monitors were applied and used throughout the procedure. Skin overlying the injection site on the affected side(s) was prepared broadly with ChloraPrep applicator and draped in a sterile manner. Aseptic technique was used throughout. The endplates of the vertebral bodies at the site(s) of interest were aligned in the AP view. Ipsilateral oblique angulation was utilized to optimize visualization of the intersection between the superior articulating process and transverse process at each target site. Local anesthesia was established by infiltration with approximately 5 mL of 1% lidocaine via a 1-1/2 inch 27-gauge needle divided over each site treated. A 16-gauge 100mm TravelerCarian RF needle with curved 10mm active tip was advanced in the AP view until the needle tip contacted the periosteum at the target site, the left L3 medial branch. Lateral view was utilized to adjust and confirm the appropriate placement of the needle tip just anterior to the facet line, superior to the pedicle and posterior to the foramen. Grounding electrode was in place and functioning. The appropriately-sized RF cannula was inserted into the RF needle and motor stimulation was performed with no subjective or objective evidence of recruited muscle activity with stimulation up to 2.0 volts at a frequency of 2Hz. 1.5 mL of 2.0% PF lidocaine was injected after negative aspiration. After a 90s pause, lesioning was performed to 90 degrees centigrade for 90s ensuring lack of symptoms in the extremity throughout. Needle was rotated 180 degrees and lesioning repeated in a similar manner. Patient tolerated this well. No paresthesias were elicited. Needle was removed completely intact without difficulty. The same procedure was repeated for all intended levels/ structures on the ipsilateral side, left L4, L5 medial branch/dorsal ramus with identical methodology, modified to compensate for new location, with similar results and no evidence of complication. Images were saved and documented in the patient chart. Patient's skin was cleansed and sterile bandage applied. The patient tolerated the procedure well. The patient was transported to the recovery area in stable condition where they were observed for an appropriate amount of time prior to discharge, without evidence of complication. The patient was instructed to avoid excessive activity for the next 48 hours, including climbing and frequent use of stairs. Showers only for 48 hours. They were instructed not to drive or operate heavy machinery for 24 hours. They are to monitor for severe headaches, fevers, chills, night sweats, erythema/swelling at the site or any other signs of infection, bleeding/bruising, bowel or bladder changes as well as new pain, weakness or numbness in the upper or lower extremity. Should they notice these changes, they are instructed to call our office immediately or report directly to the nearest Emergency Department if no answer or if after posted office hours. COMPLICATIONS: None COMMENTS: None Complications No immediate complications Condition Stable Disposition PACU [facility] Billing Surgery - Charge Forward: Surgery Billing
[2025-07-26 11:33] VITALS: BMI 35.0
[2025-07-26 12:00] VITALS: BP 155/96; PULSE 80; RESP 16; TEMP 36.5; O2SAT 98
--- NOTE | 2025-07-26 12:26 | WPDANESEPPF ---
Anes - Initial Pre Proc Eval Procedure: Operation Date: 07/26/25 13:30 Proposed Procedures p Thermal Radiofrequency Ablation of the Left L3, L4, L5 Medial Branches / Dorsal Rami Supplying the Left L4-5, L5-S1 Facet Joints Under Fluoroscopic Guidance - Jaren Gaston MD Date/Time: 07/26/25 12:26 Surgeon: Jaren Gaston MD Pre Op Diagnosis: Spinal stenosis, lumbar region Patient Data Age: 44 Gender: M Height: 1.88 m Weight: 123.9 kg Allergies Allergy/AdvReac Type Severity Reaction Status Date / Time morphine AdvReac Mild Nausea Verified 07/26/25 12:16 Home Medications ?Medication ?Instructions ?Recorded ?Confirmed ?Type ibuprofen 200 mg tablet (IBU-200) 800 mg PO BID 04/12/25 07/18/25 History cetirizine 10 mg tablet (24Hour 10 mg PO DAILY PRN allergy symptoms 06/01/25 07/18/25 History Allergy) omeprazole 20 mg capsule,delayed 20 mg PO DAILY 06/01/25 07/18/25 History release bupropion HCl 150 mg 24 hr tablet, 150 mg PO QAM #90 tabs 06/21/25 07/18/25 Rx extended release (Wellbutrin XL) rosuvastatin 20 mg tablet 20 mg PO DAILY #90 tabs 06/28/25 07/18/25 Rx hydrochlorothiazide 25 mg tablet 25 mg PO DAILY #90 tabs 07/04/25 07/18/25 Rx dicyclomine 20 mg tablet 20 mg PO TID PRN abdominal pain 07/18/25 07/18/25 Rx #90 tabs metoprolol succinate 50 mg 50 mg PO DAILY #90 tabs 07/18/25 07/18/25 Rx tablet,extended release 24 hr Patient hx anesthesia problems: none Family hx anesthesia problems: none Results Review: All pre-operative results and documents have been reviewed as part of the pre-operative evaluation. [facility] Past Medical History Medical History Hyperlipidemia Arthritis of both knees Parkinson's disease Gastroesophageal reflux disease Sphincter of Oddi dysfunction Kidney stone Depression Surgical History Surgical History History of back surgery History of strabismus surgery As an . History of arthroscopy of right knee History of right knee surgery (11/02/09) Karina osteotomy. History of laparoscopic cholecystectomy (04/12/11) History of tonsillectomy (1985) History of inguinal hernia (09/27/13) Indirect right inguinal hernia repair. Family History Family History Grandparent Diabetes mellitus Cancer Cerebrovascular accident Other Family history of allergic disorder Family history of gallbladder disease Hypertension Social History Social History Social History: Surrogate decision maker: Brit Brady, spouse. Code status: Full code. 05/04/25 very confident with medical forms Smoking packs per day: 1 Smoking cigarettes per day: 20.0 Years smoked: 20 Smoking pack-years: 20.00 Smoking status: Former smoker Tobacco type: cigarettes Smoking end date: 05/03/25 Alcohol intake: current Drinks per week: 2 Alcohol use details: socially Substance use: never Substance use type: does not use Do You Feel Safe in your Home?: Yes Lack of Transportation: No Lack of Food: Never True Current Housing: I Have Housing Concerned About Future Housing: No Difficulty Paying Gas/Electric Bills: No Difficulty Paying for Meds: No Currently Unemployed: No Education: Trade/Vocational Certificate Difficulty w/ Childcare or Family Care: No Living arrangements: with family Additional living arrangements comments: and children Occupation/Education: occupation 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 Gender identity (if verbalized by the patient): Male Spiritual care concerns: No Anes - Eval Final PreProcedure Day of Procedure 07/26/25 12:26 Patient weight: obese Heart: regular rate and rhythm Lungs: decreased breath sounds Airway: Mallampati scale class II Neurological: alert and oriented Last oral intake: >/= 8 hours ASA classification: III Emergent: no Anesthetic plan: proceed Anesthesia type and monitoring: general GIVS and standard monitoring Results Review: All pre-operative results and documents have been reviewed as part of the pre-operative evaluation. Informed Consent: The patient's anesthetic plan and its attendant risks and benefits were discussed with the patient/family/POA. Questions were solicited and answers provided to the satisfaction of the patient/family/POA.
[2025-07-26] MEDS: BUPivacaine HCL 0.5% 10 ML AMP 5 ML INFILTRATE (13:00)
[2025-07-26] MEDS: LIDOCAINE 2% PF LOCAL INJ 5 ML VIAL 10 ML INFILTRATE (13:00)
[2025-07-26 13:15] VITALS: BP 147/92; PULSE 88; RESP 14; O2SAT 97
[2025-07-26] MEDS: LACTATED RINGERS 1,000 ML 30 ML IV CONT (13:15)
[2025-07-26 13:45] VITALS: BP 131/73; PULSE 87
== END 2025-07-26 13:50 | disposition home or self-care (01) ==
PROVIDERS: PCP Nurse Practitioner Family; Visit Provider Anesthesiology Pain Medicine
PROC: (CPT 64635; principal; 2025-07-26 13:30)
DX: M48.061 Spinal stenosis, lumbar region without neurogenic claudication (principal); M47.817 Spondylosis without myelopathy or radiculopathy, lumbosacral region; M43.16 Spondylolisthesis, lumbar region; M54.42 Lumbago with sciatica, left side; M96.1 Postlaminectomy syndrome, not elsewhere classified; E78.5 Hyperlipidemia, unspecified; K21.9 Gastro-esophageal reflux disease without esophagitis; M17.0 Bilateral primary osteoarthritis of knee; G20.A1 Parkinson's disease without dyskinesia, without mention of fluctuations; K83.09 Other cholangitis; F32.A Depression, unspecified; E66.9 Obesity, unspecified; Z68.35 Body mass index [BMI] 35.0-35.9, adult; Z79.1 Long term (current) use of non-steroidal anti-inflammatories (NSAID); Z79.899 Other long term (current) drug therapy; Z98.890 Other specified postprocedural states; Z98.1 Arthrodesis status; Z90.49 Acquired absence of other specified parts of digestive tract; Z87.891 Personal history of nicotine dependence; Z87.442 Personal history of urinary calculi; Z80.9 Family history of malignant neoplasm, unspecified
CPT/HCPCS: 64635; 64636; 99199; J2003; J2250; J2704; J3010; J7120